=== PATIENT | female | born 2000 | race Caucasian/White ===

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

== ENCOUNTER 2019-08-13 06:54 | Inpatient (IN) | payer BC ==
[~2019-08-13 06:54] MED LIST: Bupivacaine 0.25% 10 ML SDV ONE
[2019-08-13] MEDS ORDERED: Misoprostol 25 MCG (1/4 of 100 MCG) Tab ONE (07:38)
[2019-08-13] MEDS ORDERED: Sodium Chloride 0.9% 10 ML Syringe FLUSH PRN (07:42)
[2019-08-13] MEDS ORDERED: Ondansetron 4 MG/2 ML SDV IVPUSH PRN (07:42)
[2019-08-13] MEDS ORDERED: Misoprostol 25 MCG (1/4 of 100 MCG) Tab VAG ONE ×2 (07:45→11:00)
--- NOTE | 2019-08-13 07:56 | PCM.LDHP ---
L&D History of Present Illness - General Date of Service: 08/13/19 Admit Problem/Dx: Patient Status Order with Admit Dx/Problem 08/13/19 07:42 Patient Status [ADT] Routine Admission Diagnosis/Problem Admission Diagnosis/Problem History Limitations: Reports: No Limitations - History of Present Illness Introduction:: -year-old 1 AMANDA 08/17/19 estimated gestational age 89 weeks and 3 days presented to labor and delivery for induction of labor. Patient had problems during the with threatened labor controlled with Procardia 10 mg by mouth every 4 hours patient is now presenting for induction of labor. GBS positive. Collected 06/11/2019 LMP AMANDA 08/17/2019 initial ultrasound on 02/25/2019 15 weeks and 3 days AMANDA 201901/28/2019 blood type A positive antibody screen negative hemoglobin/hematocrit 12.3/36.7 platelets 217,000 rubella immune serology nonreactive urine culture mixed cristian hepatitis B surface antigen negative GC and chlamydia probe negative 06/03/19 hemoglobin/hematocrit 9.4/30.4 platelets 179,000, 1 hour OB glucose screen 109 serology nonreactive 06/04/19 group B strep negative but 06/11/19 group B strep positive 50 g of Cytotec placed at 0747 hrs. Cervix is 1-2 cm dilated on soft posterior cephalic presentation -2 Improves with: Reports: None Worsens with: Reports: None Associated Symptoms: Reports: N - Related Data Allergies/Adverse Reactions: Allergies Allergy/AdvReac Type Severity Reaction Status Date / Time No Known Allergies Allergy Verified 08/07/19 03:04 Home Medications: Home Meds [id number]/Iron Fumarate/FA/DSS [ 19 Tablet] 1 each PO DAILY 07/09/19 [ History] Past Medical History - Past Health History Medical/Surgical History: Denies Medical/Surgical History HEENT History: Reports: Impaired Vision Gastrointestinal History: Reports: Hemorrhoids Genitourinary History: Reports: UTI, Recurrent 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: Psychiatric History: 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) Hematologic History: Reports: Iron Deficiency - Past Surgical History HEENT Surgical History: Reports: Oral Surgery (wisdom teeth extraction) Musculoskeletal Surgical History: Reports: Other (See Below) (Bilateral gastrocnemius tendon shortening) Social & Family History - Family History Family Medical History: Noncontributory - Caffeine Use Caffeine Use: Reports: Soda - Living Situation & Occupation Living situation: Reports: Single, with Significant Other (Boyfriend), with Family (Baby) Occupation: Employed ([employer]) H&P Review of Systems - Review of Systems: Review Of Systems: See Below General: Reports: No Symptoms HEENT: Reports: No Symptoms Pulmonary: Reports: No Symptoms Cardiovascular: Reports: No Symptoms Gastrointestinal: Reports: No Symptoms Genitourinary: Reports: No Symptoms Musculoskeletal: Reports: No Symptoms Skin: Reports: No Symptoms Psychiatric: Reports: No Symptoms Neurological: Reports: No Symptoms Hematologic/Lymphatic: Reports: No Symptoms Immunologic: Reports: No Symptoms L&D Exam - Exam Exam: See Below - Vital Signs Weight: 357 lb 2.382 oz - OB Specific Movement: Active Heart Tones: Present Heart Tones per Min: 130 Heart Rate (FHR) Variability: Moderate (6-25 bmp) Presentation: Vertex - Winter Score Winter Score Cervix Position: Posterior Winter Score Consistency: Soft Winter Score Effacement: 0-30% Winter Score Dilation: 1-2 cm Winter Score Infant's Station: -2 Winter Score Total: 4 - Exam General: Alert, Oriented HEENT: Conjunctiva Clear, Mucosa Moist & [place] Neck: Supple, Trachea Midline Lungs: Clear to Auscultation, Normal Respiratory Effort Cardiovascular: Regular Rate, Regular Rhythm GI/Abdominal Exam: Normal Bowel Sounds, Soft, Non-Tender Genitourinary: Normal external exam Extremities: Normal Inspection, Non-Tender, No Pedal Edema, Normal Capillary Refill Skin: Warm, Dry, Intact Psychiatric: Alert, Normal Affect, Normal Mood - Problem List (1) 39 weeks gestation of SNOMED Code(s): 92412384 ICD Code: Z3A.39 - 39 WEEKS GESTATION OF Status: Acute Current Visit: Yes Problem List Initiated/Reviewed/Updated: No Orders Last 24hrs: Active Orders 24 hr Category Date Time Status Patient Status [ADT] Routine ADT 08/13/19 07:42 Active Activity as Tolerated [RC] PFP Care 08/13/19 07:42 Active Communication Order [RC] ASDIRECTED Care 08/13/19 07:42 Active Heart Tones [RC] ASDIRECTED Care 08/13/19 07:43 Active Non Stress Test [RC] PER UNIT ROUTINE Care 08/13/19 07:42 Active Notify Provider [RC] PFP Care 08/13/19 07:42 Active Notify Provider [RC] PRN Care 08/13/19 07:42 Active Peripheral IV Care [RC] . DIRECTED Care 08/13/19 07:43 Active Pump Management, Intrathecal [RC] ASDIRECTED Care 08/13/19 07:43 Active Urinary Catheter Assessment [RC] ASDIRECTED Care 08/13/19 07:42 Active Vital Signs [RC] PER UNIT ROUTINE Care 08/13/19 07:42 Active Regular Diet [DIET] Diet 08/13/19 Breakfast Active CBC WITH AUTO DIFF [HEME] Stat Lab 08/13/19 07:42 Ordered RAPID PLASMA REAGIN,RPR [CHEM] Routine Lab 08/13/19 07:42 Ordered TYPE AND SCREEN [BBK] Stat Lab 08/13/19 07:42 Ordered Ampicillin 1 gm Med 08/13/19 12:00 Active Sodium Chloride 0.9% [Normal Saline] 100 ml IV Q4H Ampicillin 2 gm Med 08/13/19 08:00 Active Sodium Chloride 0.9% [Normal Saline] 100 ml IV ONETIME Lactated Ringers [Ringers, Lactated] 1,000 ml Med 08/13/19 07:45 Active IV ASDIRECTED Ondansetron [Zofran] Med 08/13/19 07:42 Active 4 mg IVPUSH Q4H PRN Oxytocin/Lactated Ringers [Pitocin in LR 10 Units/1,000 Med 08/13/19 12:00 Ordered ML] 10 unit in 1,000 ml IV TITRATE Sodium Chloride 0.9% [Saline Flush] Med 08/13/19 07:42 Ordered 10 ml FLUSH ASDIRECTED PRN Electronic Heart Tones Ext w TOCO [WOMSER] Oth 08/13/19 07:42 Ordered Routine Electronic Heart Tones Internal [WOMSER] Per Unit Oth 08/13/19 07:42 Ordered Routine Peripheral IV Insertion Adult [OM.PC] Routine Oth 08/13/19 07:42 Ordered Resuscitation Status Routine Resus Stat 08/13/19 07:42 Ordered Medication Orders Ampicillin Sodium 2 gm/ Sodium (Chloride) 100 mls @ 200 mls/hr IV ONETIME ONE Stop: 08/13/19 08:29 Ampicillin Sodium 1 gm/ Sodium (Chloride) 100 mls @ 200 mls/hr IV Q4H FERNANDO Lactated Ringer's (Ringers, Lactated) 1,000 mls @ 100 mls/hr IV ASDIRECTED FERNANDO Ondansetron HCl (Zofran) 4 mg IVPUSH Q4H PRN PRN Reason: Nausea/Vomiting Sodium Chloride (Saline Flush) 10 ml FLUSH ASDIRECTED PRN PRN Reason: Keep Vein Open Assessment/Plan Comment:: Plan delivery Salon for GBS prophylaxis
[2019-08-13] MEDS ORDERED: Ampicillin 2 GM in Sodium Chloride 0.9% 100 ML IV ONE (08:00)
[2019-08-13] MEDS: Lactated Ringers 1,000 ML IV SCH ×2 (08:15→14:22)
[2019-08-13] MEDS ORDERED: Oxytocin/Lactated Ringers 10 UNIT/1,000 ML BAG IV SCH (12:00)
[2019-08-13] MEDS: Ampicillin 1 GM in Sodium Chloride 0.9% 100 ML IV SCH ×3 (12:04→21:14)
--- NOTE | 2019-08-13 12:11 | PCM.SN ---
- Free Text/Narrative Note: Cyst 2 cm dilated, 50% effaced, soft, posterior, vertex -1 presentation. Category 1 heart rate before and after amniotomy. Amniotomy performed at 1208 hrs. clear fluid.
--- NOTE | 2019-08-13 12:28 | PCM.PREANE ---
Preanesthetic Assessment - Procedure Proposed Procedure: sandy - Anesthesia/Transfusion/Family Hx Anesthesia History: Prior Anesthesia Without Reaction Family History of Anesthesia Reaction: No Transfusion History: No Prior Transfusion(s) - Review of Systems General: No Symptoms Pulmonary: No Symptoms Cardiovascular: No Symptoms Gastrointestinal: No Symptoms Neurological: No Symptoms Other: Reports: None - Physical Assessment Vital Signs: Last Vital Signs Temp 98.2 F 08/13/19 07:42 Pulse 101 H 08/13/19 07:42 Resp 16 08/13/19 07:42 BP 116/57 L 08/13/19 07:42 Pulse Ox 100 08/13/19 07:42 Height: 5 ft 5 in Weight: 78.925 kg ASA Class: 2 Mental Status: Alert & Oriented x3 Airway Class: Mallampati = 1 Dentition: Reports: Normal Dentition Thyro-Mental Finger Breadths: 3 Mouth Opening Finger Breadths: 3 ROM/Head Extension: Full Lungs: Clear to Auscultation, Normal Respiratory Effort Cardiovascular: Regular Rate, Regular Rhythm - Lab Values: Laboratory Last Values WBC 6.20 K/mm3 (3.98-10.04) 08/13/19 07:56 RBC 4.04 M/mm3 (3.98-5.22) 08/13/19 07:56 Hgb 10.2 gm/dl (11.2-15.7) L 08/13/19 07:56 Hct 32.6 % (34.1-44.9) L 08/13/19 07:56 MCV 80.7 fl (79.4-94.8) D 08/13/19 07:56 MCH 25.2 pg (25.6-32.2) L 08/13/19 07:56 MCHC 31.3 g/dl (32.2-35.5) L 08/13/19 07:56 RDW Std Deviation 54.2 fL (36.4-46.3) H 08/13/19 07:56 Plt Count 160 K/mm3 (182-369) L 08/13/19 07:56 MPV 10.1 fl (9.4-12.3) 08/13/19 07:56 Neut % (Auto) 57.0 % (34.0-71.1) 08/13/19 07:56 Lymph % (Auto) 28.9 % (19.3-51.7) 08/13/19 07:56 [place] % (Auto) 11.8 % (4.7-12.5) 08/13/19 07:56 Eos % (Auto) 1.1 (0.7-5.8) 08/13/19 07:56 Baso % (Auto) 0.2 % (0.1-1.2) 08/13/19 07:56 Neut # (Auto) 3.54 K/mm3 (1.56-6.13) 08/13/19 07:56 Lymph # (Auto) 1.79 K/mm3 (1.18-3.74) 08/13/19 07:56 [place] # (Auto) 0.73 K/mm3 (0.24-0.36) H 08/13/19 07:56 Eos # (Auto) 0.07 K/mm3 (0.04-0.36) 08/13/19 07:56 Baso # (Auto) 0.01 K/mm3 (0.01-0.08) 08/13/19 07:56 Blood Type A POSITIVE 08/13/19 07:56 Gel Antibody Screen Negative 08/13/19 07:56 - Allergies Allergies/Adverse Reactions: Allergies Allergy/AdvReac Type Severity Reaction Status Date / Time No Known Allergies Allergy Verified 08/07/19 03:04 - Blood Blood Available: No - Acknowledgements Anesthesia Type Planned: Epidural Pt an Appropriate Candidate for the Planned Anesthesia: Yes Alternatives and Risks of Anesthesia Discussed w Pt/Guardian: Yes Pt/Guardian Understands and Agrees with Anesthesia Plan: Yes PreAnesthesia Questionnaire - Past Health History Medical/Surgical History: Denies Medical/Surgical History HEENT History: Reports: Impaired Vision Cardiovascular History: Reports: None Respiratory History: Reports: None Gastrointestinal History: Reports: GERD (with preg), Hemorrhoids Genitourinary History: Reports: UTI, Recurrent 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 Psychiatric History: 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) Hematologic History: Reports: Iron Deficiency - Past Surgical History HEENT Surgical History: Reports: Oral Surgery (wisdom teeth extraction) Musculoskeletal Surgical History: Reports: Other (See Below) (Bilateral gastrocnemius tendon shortening) - SUBSTANCE USE Smoking Status *Q: Never Smoker Tobacco Use Within Last Twelve Months: No Second Hand Smoke Exposure: No Days Per Week of Alcohol Use: 0 Recreational Drug Use History: No - HOME MEDS Home Medications: Home Meds [id number]/Iron Fumarate/FA/DSS [ 19 Tablet] 1 each PO DAILY 07/09/19 [ History] Ferrous Sulfate [Iron] 325 mg PO DAILY 08/13/19 [History] - CURRENT (IN HOUSE) MEDS Current Meds: Current Medications Ampicillin Sodium 1 gm/ Sodium (Chloride) 100 mls @ 200 mls/hr IV Q4H FERNANDO Last Admin: 08/13/19 12:04 Dose: 200 mls/hr Lactated Ringer's (Ringers, Lactated) 1,000 mls @ 100 mls/hr IV ASDIRECTED FERNANDO Last Admin: 08/13/19 08:15 Dose: 100 mls/hr Oxytocin/Lactated Ringer's (Pitocin In Lr 10 Units/1,000 Ml) 10 unit in 1,000 mls @ 12 mls/hr IV TITRATE FERNANDO; Protocol Ondansetron HCl (Zofran) 4 mg IVPUSH Q4H PRN PRN Reason: Nausea/Vomiting Sodium Chloride (Saline Flush) 10 ml FLUSH ASDIRECTED PRN PRN Reason: Keep Vein Open Discontinued Medications Ampicillin Sodium 2 gm/ Sodium (Chloride) 100 mls @ 200 mls/hr IV ONETIME ONE Stop: 08/13/19 08:29 Last Admin: 08/13/19 08:15 Dose: 200 mls/hr Misoprostol (Cytotec) Confirm Administered Dose 25 mcg .ROUTE .STK-MED ONE Stop: 08/13/19 07:39 Last Admin: 08/13/19 11:08 Dose: Not Given Misoprostol (Cytotec) 50 mcg VAG ONETIME ONE Stop: 08/13/19 07:46 Last Admin: 08/13/19 07:47 Dose: 50 mcg Misoprostol (Cytotec) 50 mcg VAG ONETIME ONE Stop: 08/13/19 11:01 Last Admin: 08/13/19 11:05 Dose: 50 mcg
[2019-08-13] MEDS ORDERED: fentaNYL 100 MCG/2 ML SDV EPIDUR PRN (13:28)
[2019-08-13] MEDS ORDERED: ePHEDrine 50 MG/ML SDV IVPUSH PRN (13:28)
[2019-08-13] MEDS ORDERED: diphenhydrAMINE 50 MG/ML SDV IVPUSH PRN (13:28)
[2019-08-13] MEDS ORDERED: Bupivacaine/fentaNYL/NS 100 ML Bag EPIDUR PRN (13:28)
--- NOTE | 2019-08-13 16:08 | PCM.SN ---
- Free Text/Narrative Note: Cervix 5 cm, 100 % effaced, soft, mid-position, vertex 0 station. Contractions need to be more regular and closer together, will start pitocin. Cat I FHR pattern.
--- NOTE | 2019-08-13 19:31 | PCM.SN ---
- Free Text/Narrative Note: Cervix exam at 1925 complete, to begin pushing.
--- NOTE | 2019-08-13 19:59 | PCM.DEL ---
L & D Note - General Info Date of Service: 08/13/19 Mother's Due Date: 08/17/19 - Delivery Note Labor: Augmented by ARM, Induced by Oxytocin Delivery Outcome: Livebirth (male 08/13/2019 1938 hrs weight 3960 g/8# 12 oz APGARs 8/9, JT, nuchal cord x1, true knot in cord) Delivery Method: Spontaneous Vaginal Delivery-Single Infant Delivery Mode: Spontaneous Presentation: Left Occiput Anterior (JT) Nuchal Cord: Present (x1 and true knot in the cord) Prep: Povidone-Iodine (Betadine Anesthesia Type: Epidural Episiotomy Type: None Laceration: None Placenta: Intact, Spontaneous (194108/13/2019 Intrauterine exam removed two small remnants of membranes) Cord: 3 Vessels, True Knot Resuscitation Needed: No : Suctioned, Bulb Syringe, Stimulated, Warmed, [place] Used, Warmer Used Provider: Orion Chambers Score 1 min: 8 Score 5 min: 9 Induction Criteria - Winter Score Winter Score Dilation: 1-2 cm Winter Score Effacement: 0-30% Winter Score Infant's Station: -2 Winter Score Consistency: Soft Winter Score Cervix Position: Posterior Winter Score Total: 4 Winter Score Presenting Part: Reports: Cephalic - Induction Gestational Age >/= 39 wks: Yes Estimated Pelvis: Reports: Adequate Reassuring Monitoring Strip: Yes Absence of Tachy Systole: Yes - Augmentation Estimated Pelvis: Reports: Adequate Weight Estimated:: Reports: AGA Reassuring Monitoring Strip: Yes Absence of Tachy Systole: Yes - General Info Date of Service: 08/13/19 Functional Status: Reports: Pain Controlled - Review of Systems General: Reports: No Symptoms HEENT: Reports: No Symptoms Pulmonary: Reports: No Symptoms Cardiovascular: Reports: No Symptoms Gastrointestinal: Reports: No Symptoms Genitourinary: Reports: No Symptoms Musculoskeletal: Reports: No Symptoms Skin: Reports: No Symptoms Neurological: Reports: No Symptoms Psychiatric: Reports: No Symptoms - Patient Data Vitals - Most Recent: Last Vital Signs Temp 98.2 F 08/13/19 07:42 Pulse 101 H 08/13/19 07:42 Resp 16 08/13/19 07:42 BP 116/57 L 08/13/19 07:42 Pulse Ox 100 08/13/19 07:42 Weight - Most Recent: 174 lb Lab Results Last 24 Hours: Laboratory Results - last 24 hr 08/13/19 08/13/19 Range/Units 07:56 07:56 WBC 6.20 (3.98-10.04) K/mm3 RBC 4.04 (3.98-5.22) M/mm3 Hgb 10.2 L (11.2-15.7) gm/dl Hct 32.6 L (34.1-44.9) % MCV 80.7 D (79.4-94.8) fl MCH 25.2 L (25.6-32.2) pg MCHC 31.3 L (32.2-35.5) g/dl RDW Std Deviation 54.2 H (36.4-46.3) fL Plt Count 160 L (182-369) K/mm3 MPV 10.1 (9.4-12.3) fl Neut % (Auto) 57.0 (34.0-71.1) % Lymph % (Auto) 28.9 (19.3-51.7) % [place] % (Auto) 11.8 (4.7-12.5) % Eos % (Auto) 1.1 (0.7-5.8) Baso % (Auto) 0.2 (0.1-1.2) % Neut # (Auto) 3.54 (1.56-6.13) K/mm3 Lymph # (Auto) 1.79 (1.18-3.74) K/mm3 [place] # (Auto) 0.73 H (0.24-0.36) K/mm3 Eos # (Auto) 0.07 (0.04-0.36) K/mm3 Baso # (Auto) 0.01 (0.01-0.08) K/mm3 Blood Type A POSITIVE Gel Antibody Screen Negative Med Orders - Current: Current Medications Diphenhydramine HCl (Benadryl) 25 mg IVPUSH Q6H PRN PRN Reason: pruritis Ephedrine Sulfate (Ephedrine Sulfate) 5 mg IVPUSH ASDIRECTED PRN PRN Reason: Hypotension Fentanyl (Sublimaze) 100 mcg EPIDUR Q3H PRN PRN Reason: Pain Last Admin: 08/13/19 14:04 Dose: 100 mcg Fentanyl/Bupivacaine HCl (Fentanyl/Bupivacaine/Ns 2 Mcg-0.125% 100 Ml) 100 ml EPIDUR ASDIRECTED PRN PRN Reason: Pain Last Admin: 08/13/19 14:05 Dose: 100 ml Ampicillin Sodium 1 gm/ Sodium (Chloride) 100 mls @ 200 mls/hr IV Q4H FERNANDO Last Admin: 08/13/19 16:19 Dose: 200 mls/hr Lactated Ringer's (Ringers, Lactated) 1,000 mls @ 100 mls/hr IV ASDIRECTED FERNANDO Last Admin: 08/13/19 14:22 Dose: 100 mls/hr Oxytocin/Lactated Ringer's (Pitocin In Lr 10 Units/1,000 Ml) 10 unit in 1,000 mls @ 12 mls/hr IV TITRATE FERNANDO; Protocol Last Titration: 08/13/19 18:26 Dose: 3 munits/min, 18 mls/hr Ondansetron HCl (Zofran) 4 mg IVPUSH Q4H PRN PRN Reason: Nausea/Vomiting Sodium Chloride (Saline Flush) 10 ml FLUSH ASDIRECTED PRN PRN Reason: Keep Vein Open Discontinued Medications Ampicillin Sodium 2 gm/ Sodium (Chloride) 100 mls @ 200 mls/hr IV ONETIME ONE Stop: 08/13/19 08:29 Last Admin: 08/13/19 08:15 Dose: 200 mls/hr Misoprostol (Cytotec) Confirm Administered Dose 25 mcg .ROUTE .STK-MED ONE Stop: 08/13/19 07:39 Last Admin: 08/13/19 11:08 Dose: Not Given Misoprostol (Cytotec) 50 mcg VAG ONETIME ONE Stop: 08/13/19 07:46 Last Admin: 08/13/19 07:47 Dose: 50 mcg Misoprostol (Cytotec) 50 mcg VAG ONETIME ONE Stop: 08/13/19 11:01 Last Admin: 08/13/19 11:05 Dose: 50 mcg - Exam General: Alert, Oriented HEENT: Pupils Equal, Mucous Membr. Moist/[place] Neck: Supple Lungs: Clear to Auscultation, Normal Respiratory Effort Cardiovascular: Regular Rate, Regular Rhythm GI/Abdominal Exam: Normal Bowel Sounds, Soft, Non-Tender (Female) Exam: Normal External Exam Extremities: Normal Inspection, Non-Tender, No Pedal Edema, Normal Capillary Refill Skin: Warm, Dry, Intact Psy/Mental Status: Alert, Normal Affect, Normal Mood - Problem List & Annotations (1) 39 weeks gestation of SNOMED Code(s): 58126704 Code(s): Z3A.39 - 39 WEEKS GESTATION OF Status: Acute Current Visit: Yes (2) Nuchal cord without compression, delivered, current hospitalization SNOMED Code(s): 02164765, 001103995 Code(s): O69.81X0 - LABOR AND DEL COMP BY CORD AROUND NECK, W/O COMPRSN, UNSP Status: Acute Current Visit: Yes (3) True knot in cord SNOMED Code(s): 88817154 Code(s): O69.2XX0 - LABOR AND DEL COMP BY OTH CORD ENTANGLE, W COMPRSN, UNSP Status: Acute Current Visit: Yes Qualifiers: Fetus number: single or unspecified fetus Qualified Code(s): O69.2XX0 - Labor and delivery complicated by other cord entanglement, with compression, not applicable or unspecified (4) Born by normal vaginal delivery SNOMED Code(s): 199235277 Code(s): O80 - ENCOUNTER FOR FULL-TERM UNCOMPLICATED DELIVERY Status: Acute Current Visit: Yes (5) Umbilical cord, marginal insertion SNOMED Code(s): 07088236 Code(s): UPS3605 - Status: Acute Current Visit: Yes - Problem List Review Problem List Initiated/Reviewed/Updated: No - My Orders Last 24 Hours: My Active Orders 08/13/19 07:42 Patient Status [ADT] Routine Activity as Tolerated [RC] PFP Communication Order [RC] ASDIRECTED Non Stress Test [RC] PER UNIT ROUTINE Notify Provider [RC] PFP Notify Provider [RC] PRN Urinary Catheter Assessment [RC] ASDIRECTED Vital Signs [RC] PER UNIT ROUTINE Ondansetron [Zofran] 4 mg IVPUSH Q4H PRN Sodium Chloride 0.9% [Saline Flush] 10 ml FLUSH ASDIRECTED PRN Electronic Heart Tones Ext w TOCO [WOMSER] Routine Electronic Heart Tones Internal [WOMSER] Per Unit Routine Peripheral IV Insertion Adult [OM.PC] Routine Resuscitation Status Routine 08/13/19 07:43 Heart Tones [RC] ASDIRECTED Peripheral IV Care [RC] . DIRECTED Pump Management, Intrathecal [RC] ASDIRECTED 08/13/19 07:45 Lactated Ringers [Ringers, Lactated] 1,000 ml IV ASDIRECTED 08/13/19 07:56 RAPID PLASMA REAGIN,RPR [CHEM] Routine 08/13/19 12:00 Ampicillin 1 gm Sodium Chloride 0.9% [Normal Saline] 100 ml IV Q4H Oxytocin/Lactated Ringers [Pitocin in LR 10 Units/1,000 ML] 10 unit in 1,000 ml IV TITRATE 08/13/19 Breakfast Regular Diet [DIET] - Plan Plan:: Plan delivery Salon for GBS prophylaxis
[2019-08-13] MEDS ORDERED: Misoprostol 200 MCG Tab ONE (20:17)
[2019-08-13] MEDS ORDERED: Carboprost Tromethamine 250 MCG/1 ML Amp ONE (20:18)
[2019-08-13] MEDS ORDERED: Carboprost Tromethamine 250 MCG/1 ML Amp IM ONE (20:29)
[2019-08-13] MEDS ORDERED: Misoprostol 200 MCG Tab PO ONE (20:29)
[2019-08-13] MEDS ORDERED: Witch Hazel Medicated Pads 40/Jar TOP PRN (21:16)
[2019-08-13] MEDS ORDERED: Docusate Sodium 100 MG Cap PO PRN (21:16)
[2019-08-13] MEDS ORDERED: Benzocaine/Menthol 20%-0.5% Spray 56 GM Canister TOP PRN (21:16)
[2019-08-13] MEDS ORDERED: Acetaminophen 325 MG Tab PO PRN (21:16)
[2019-08-14] MEDS ORDERED: Misoprostol 200 MCG Tab PO ONE (03:00)
[2019-08-14] MEDS: Ibuprofen 600 MG Tab PO PRN ×3 (03:32→21:40)
--- NOTE | 2019-08-14 09:21 | PCM48HPAN ---
Post Anesthesia Note - EVALUATION WITHIN 48HRS OF ANESTHETIC Vital Signs in Normal Range: Yes Patient Participated in Evaluation: Yes Respiratory Function Stable: Yes Airway Patent: Yes Cardiovascular Function Stable: Yes Hydration Status Stable: Yes Pain Control Satisfactory: Yes Nausea and Vomiting Control Satisfactory: Yes Mental Status Recovered: Yes Vital Signs: Last Vital Signs Temp 36.8 C 08/13/19 07:42 Pulse 122 H 08/13/19 21:00 Resp 16 08/13/19 07:42 BP 137/81 08/13/19 21:00 Pulse Ox 100 08/13/19 07:42
--- NOTE | 2019-08-14 09:54 | PCM.DCSUM1 ---
Discharge Summary - Hospital Course Free Text/Narrative:: [facility] LIVE L/D Delivery Note Patient Name: ELENO ABREU Date of : 89 Patient Status: Inpatient Attending Provider: Orion Chambers Date: 08/13/19 19:53 Initialization Date: 08/13/19 19:53 L & D Note - General Info Date of Service: 08/13/19 Mother's Due Date: 08/17/19 - Delivery Note Labor: Augmented by ARM, Induced by Oxytocin Delivery Outcome: Livebirth (male 08/13/2019 1938 hrs weight 3960 g/8# 12 oz APGARs 8/9, JT, nuchal cord x1, true knot in cord) Delivery Method: Spontaneous Vaginal Delivery-Single Delivery Mode: Spontaneous Presentation: Left Occiput Anterior (JT) Nuchal Cord: Present (x1 and true knot in the cord) Prep: Povidone-Iodine (Betadine Anesthesia Type: Epidural Episiotomy Type: None Laceration: None Placenta: Intact, Spontaneous (194108/13/2019 Intrauterine exam removed two small remnants of membranes) Cord: 3 Vessels, True Knot Resuscitation Needed: No : Suctioned, Bulb Syringe, Stimulated, Warmed, [place] Used, Warmer Used Provider: Orion Chambers Score 1 min: 8 Score 5 min: 9 Induction Criteria - Winter Score Winter Score Dilation: 1-2 cm Winter Score Effacement: 0-30% Winter Score Infant's Station: -2 Winter Score Consistency: Soft Winter Score Cervix Position: Posterior Winter Score Total: 4 Winter Score Presenting Part: Reports: Cephalic - Induction Gestational Age >/= 39 wks: Yes Estimated Pelvis: Reports: Adequate Reassuring Monitoring Strip: Yes Absence of Tachy Systole: Yes - Augmentation Estimated Pelvis: Reports: Adequate Weight Estimated:: Reports: AGA Reassuring Monitoring Strip: Yes Absence of Tachy Systole: Yes - General Info Date of Service: 08/13/19 Functional Status: Reports: Pain Controlled - Review of Systems General: Reports: No Symptoms HEENT: Reports: No Symptoms Pulmonary: Reports: No Symptoms Cardiovascular: Reports: No Symptoms Gastrointestinal: Reports: No Symptoms Genitourinary: Reports: No Symptoms Musculoskeletal: Reports: No Symptoms Skin: Reports: No Symptoms Neurological: Reports: No Symptoms Psychiatric: Reports: No Symptoms - Patient Data Vitals - Most Recent: Last Vital Signs Temp 98.2 F 08/13/19 07:42 Pulse 101 H 08/13/19 07:42 Resp 16 08/13/19 07:42 BP 116/57 L 08/13/19 07:42 Pulse Ox 100 08/13/19 07:42 Weight - Most Recent: 174 lb Lab Results Last 24 Hours: Laboratory Results - last 24 hr 08/13/19 08/13/19 Range/Units 07:56 07:56 WBC 6.20 (3.98-10.04) K/mm3 RBC 4.04 (3.98-5.22) M/mm3 Hgb 10.2 L (11.2-15.7) gm/dl Hct 32.6 L (34.1-44.9) % MCV 80.7 D (79.4-94.8) fl MCH 25.2 L (25.6-32.2) pg MCHC 31.3 L (32.2-35.5) g/dl RDW Std Deviation 54.2 H (36.4-46.3) fL Plt Count 160 L (182-369) K/mm3 MPV 10.1 (9.4-12.3) fl Neut % (Auto) 57.0 (34.0-71.1) % Lymph % (Auto) 28.9 (19.3-51.7) % Whitman % (Auto) 11.8 (4.7-12.5) % Eos % (Auto) 1.1 (0.7-5.8) Baso % (Auto) 0.2 (0.1-1.2) % Neut # (Auto) 3.54 (1.56-6.13) K/mm3 Lymph # (Auto) 1.79 (1.18-3.74) K/mm3 Whitman # (Auto) 0.73 H (0.24-0.36) K/mm3 Eos # (Auto) 0.07 (0.04-0.36) K/mm3 Baso # (Auto) 0.01 (0.01-0.08) K/mm3 Blood Type A POSITIVE Gel Antibody Screen Negative Med Orders - Current: Current Medications Diphenhydramine HCl (Benadryl) 25 mg IVPUSH Q6H PRN PRN Reason: pruritis Ephedrine Sulfate (Ephedrine Sulfate) 5 mg IVPUSH ASDIRECTED PRN PRN Reason: Hypotension Fentanyl (Sublimaze) 100 mcg EPIDUR Q3H PRN PRN Reason: Pain Last Admin: 08/13/19 14:04 Dose: 100 mcg Fentanyl/Bupivacaine HCl (Fentanyl/Bupivacaine/Ns 2 Mcg-0.125% 100 Ml) 100 ml EPIDUR ASDIRECTED PRN PRN Reason: Pain Last Admin: 08/13/19 14:05 Dose: 100 ml Ampicillin Sodium 1 gm/ Sodium (Chloride) 100 mls @ 200 mls/hr IV Q4H FERNANDO Last Admin: 08/13/19 16:19 Dose: 200 mls/hr Lactated Ringer's (Ringers, Lactated) 1,000 mls @ 100 mls/hr IV ASDIRECTED FERNANDO Last Admin: 08/13/19 14:22 Dose: 100 mls/hr Oxytocin/Lactated Ringer's (Pitocin In Lr 10 Units/1,000 Ml) 10 unit in 1,000 mls @ 12 mls/hr IV TITRATE FERNANDO; Protocol Last Titration: 08/13/19 18:26 Dose: 3 munits/min, 18 mls/hr Ondansetron HCl (Zofran) 4 mg IVPUSH Q4H PRN PRN Reason: Nausea/Vomiting Sodium Chloride (Saline Flush) 10 ml FLUSH ASDIRECTED PRN PRN Reason: Keep Vein Open Discontinued Medications Ampicillin Sodium 2 gm/ Sodium (Chloride) 100 mls @ 200 mls/hr IV ONETIME ONE Stop: 08/13/19 08:29 Last Admin: 08/13/19 08:15 Dose: 200 mls/hr Misoprostol (Cytotec) Confirm Administered Dose 25 mcg .ROUTE .STK-MED ONE Stop: 08/13/19 07:39 Last Admin: 08/13/19 11:08 Dose: Not Given Misoprostol (Cytotec) 50 mcg VAG ONETIME ONE Stop: 08/13/19 07:46 Last Admin: 08/13/19 07:47 Dose: 50 mcg Misoprostol (Cytotec) 50 mcg VAG ONETIME ONE Stop: 08/13/19 11:01 Last Admin: 08/13/19 11:05 Dose: 50 mcg - Exam General: Alert, Oriented HEENT: Pupils Equal, Mucous Membr. Moist/[place] Neck: Supple Lungs: Clear to Auscultation, Normal Respiratory Effort Cardiovascular: Regular Rate, Regular Rhythm GI/Abdominal Exam: Normal Bowel Sounds, Soft, Non-Tender (Female) Exam: Normal External Exam Extremities: Normal Inspection, Non-Tender, No Pedal Edema, Normal Capillary Refill Skin: Warm, Dry, Intact Psy/Mental Status: Alert, Normal Affect, Normal Mood - Problem List & Annotations (1) 39 weeks gestation of SNOMED Code(s): 99006961 Code(s): Z3A.39 - 39 WEEKS GESTATION OF Status: Acute Current Visit: Yes (2) Nuchal cord without compression, delivered, current hospitalization SNOMED Code(s): 00999592, 970710358 Code(s): O69.81X0 - LABOR AND DEL COMP BY CORD AROUND NECK, W/O COMPRSN, UNSP Status: Acute Current Visit: Yes (3) True knot in cord SNOMED Code(s): 43105783 Code(s): O69.2XX0 - LABOR AND DEL COMP BY OTH CORD ENTANGLE, W COMPRSN, UNSP Status: Acute Current Visit: Yes Qualifiers: Fetus number: single or unspecified fetus Qualified Code(s): O69.2XX0 - Labor and delivery complicated by other cord entanglement, with compression, not applicable or unspecified (4) Born by normal vaginal delivery SNOMED Code(s): 450333011 Code(s): O80 - ENCOUNTER FOR FULL-TERM UNCOMPLICATED DELIVERY Status: Acute Current Visit: Yes (5) Umbilical cord, marginal insertion SNOMED Code(s): 25690389 Code(s): KUR9853 - Status: Acute Current Visit: Yes - Problem List Review Problem List Initiated/Reviewed/Updated: No - My Orders Last 24 Hours: My Active Orders 08/13/19 07:42 Patient Status [ADT] Routine Activity as Tolerated [RC] PFP Communication Order [RC] ASDIRECTED Non Stress Test [RC] PER UNIT ROUTINE Notify Provider [RC] PFP Notify Provider [RC] PRN Urinary Catheter Assessment [RC] ASDIRECTED Vital Signs [RC] PER UNIT ROUTINE Ondansetron [Zofran] 4 mg IVPUSH Q4H PRN Sodium Chloride 0.9% [Saline Flush] 10 ml FLUSH ASDIRECTED PRN Electronic Heart Tones Ext w TOCO [WOMSER] Routine Electronic Heart Tones Internal [WOMSER] Per Unit Routine Peripheral IV Insertion Adult [OM.PC] Routine Resuscitation Status Routine 08/13/19 07:43 Heart Tones [RC] ASDIRECTED Peripheral IV Care [RC] . DIRECTED Pump Management, Intrathecal [RC] ASDIRECTED 08/13/19 07:45 Lactated Ringers [Ringers, Lactated] 1,000 ml IV ASDIRECTED 08/13/19 07:56 RAPID PLASMA REAGIN,RPR [CHEM] Routine 08/13/19 12:00 Ampicillin 1 gm Sodium Chloride 0.9% [Normal Saline] 100 ml IV Q4H Oxytocin/Lactated Ringers [Pitocin in LR 10 Units/1,000 ML] 10 unit in 1,000 ml IV TITRATE 08/13/19 Breakfast Regular Diet [DIET] - Plan Plan:: Plan delivery Salon for GBS prophylaxis HPI Initial Comments: [facility] LIVE L/D Delivery Note Patient Name: ELENO ABREU Date of : 99 Patient Status: Inpatient Attending Provider: Orion Chambers Date: 08/13/19 19:53 Initialization Date: 08/13/19 19:53 L & D Note - General Info Date of Service: 08/13/19 Mother's Due Date: 08/17/19 - Delivery Note Labor: Augmented by ARM, Induced by Oxytocin Delivery Outcome: Livebirth (male 08/13/2019 1938 hrs weight 3960 g/8# 12 oz APGARs 8/9, JT, nuchal cord x1, true knot in cord) Delivery Method: Spontaneous Vaginal Delivery-Single Delivery Mode: Spontaneous Presentation: Left Occiput Anterior (JT) Nuchal Cord: Present (x1 and true knot in the cord) Prep: Povidone-Iodine (Betadine Anesthesia Type: Epidural Episiotomy Type: None Laceration: None Placenta: Intact, Spontaneous (194108/13/2019 Intrauterine exam removed two small remnants of membranes) Cord: 3 Vessels, True Knot Resuscitation Needed: No : Suctioned, Bulb Syringe, Stimulated, Warmed, [place] Used, Warmer Used Provider: Orion Chambers Score 1 min: 8 Score 5 min: 9 Induction Criteria - Winter Score Winter Score Dilation: 1-2 cm Winter Score Effacement: 0-30% Winter Score 's Station: -2 Winter Score Consistency: Soft Winter Score Cervix Position: Posterior Winter Score Total: 4 Winter Score Presenting Part: Reports: Cephalic - Induction Gestational Age >/= 39 wks: Yes Estimated Pelvis: Reports: Adequate Reassuring Monitoring Strip: Yes Absence of Tachy Systole: Yes - Augmentation Estimated Pelvis: Reports: Adequate Weight Estimated:: Reports: AGA Reassuring Monitoring Strip: Yes Absence of Tachy Systole: Yes - General Info Date of Service: 08/13/19 Functional Status: Reports: Pain Controlled - Review of Systems General: Reports: No Symptoms HEENT: Reports: No Symptoms Pulmonary: Reports: No Symptoms Cardiovascular: Reports: No Symptoms Gastrointestinal: Reports: No Symptoms Genitourinary: Reports: No Symptoms Musculoskeletal: Reports: No Symptoms Skin: Reports: No Symptoms Neurological: Reports: No Symptoms Psychiatric: Reports: No Symptoms - Patient Data Vitals - Most Recent: Last Vital Signs Temp 98.2 F 08/13/19 07:42 Pulse 101 H 08/13/19 07:42 Resp 16 08/13/19 07:42 BP 116/57 L 08/13/19 07:42 Pulse Ox 100 08/13/19 07:42 Weight - Most Recent: 174 lb Lab Results Last 24 Hours: Laboratory Results - last 24 hr 08/13/19 08/13/19 Range/Units 07:56 07:56 WBC 6.20 (3.98-10.04) K/mm3 RBC 4.04 (3.98-5.22) M/mm3 Hgb 10.2 L (11.2-15.7) gm/dl Hct 32.6 L (34.1-44.9) % MCV 80.7 D (79.4-94.8) fl MCH 25.2 L (25.6-32.2) pg MCHC 31.3 L (32.2-35.5) g/dl RDW Std Deviation 54.2 H (36.4-46.3) fL Plt Count 160 L (182-369) K/mm3 MPV 10.1 (9.4-12.3) fl Neut % (Auto) 57.0 (34.0-71.1) % Lymph % (Auto) 28.9 (19.3-51.7) % Whitman % (Auto) 11.8 (4.7-12.5) % Eos % (Auto) 1.1 (0.7-5.8) Baso % (Auto) 0.2 (0.1-1.2) % Neut # (Auto) 3.54 (1.56-6.13) K/mm3 Lymph # (Auto) 1.79 (1.18-3.74) K/mm3 Whitman # (Auto) 0.73 H (0.24-0.36) K/mm3 Eos # (Auto) 0.07 (0.04-0.36) K/mm3 Baso # (Auto) 0.01 (0.01-0.08) K/mm3 Blood Type A POSITIVE Gel Antibody Screen Negative Med Orders - Current: Current Medications Diphenhydramine HCl (Benadryl) 25 mg IVPUSH Q6H PRN PRN Reason: pruritis Ephedrine Sulfate (Ephedrine Sulfate) 5 mg IVPUSH ASDIRECTED PRN PRN Reason: Hypotension Fentanyl (Sublimaze) 100 mcg EPIDUR Q3H PRN PRN Reason: Pain Last Admin: 08/13/19 14:04 Dose: 100 mcg Fentanyl/Bupivacaine HCl (Fentanyl/Bupivacaine/Ns 2 Mcg-0.125% 100 Ml) 100 ml EPIDUR ASDIRECTED PRN PRN Reason: Pain Last Admin: 08/13/19 14:05 Dose: 100 ml Ampicillin Sodium 1 gm/ Sodium (Chloride) 100 mls @ 200 mls/hr IV Q4H FERNANDO Last Admin: 08/13/19 16:19 Dose: 200 mls/hr Lactated Ringer's (Ringers, Lactated) 1,000 mls @ 100 mls/hr IV ASDIRECTED FERNANDO Last Admin: 08/13/19 14:22 Dose: 100 mls/hr Oxytocin/Lactated Ringer's (Pitocin In Lr 10 Units/1,000 Ml) 10 unit in 1,000 mls @ 12 mls/hr IV TITRATE FERNANDO; Protocol Last Titration: 08/13/19 18:26 Dose: 3 munits/min, 18 mls/hr Ondansetron HCl (Zofran) 4 mg IVPUSH Q4H PRN PRN Reason: Nausea/Vomiting Sodium Chloride (Saline Flush) 10 ml FLUSH ASDIRECTED PRN PRN Reason: Keep Vein Open Discontinued Medications Ampicillin Sodium 2 gm/ Sodium (Chloride) 100 mls @ 200 mls/hr IV ONETIME ONE Stop: 08/13/19 08:29 Last Admin: 08/13/19 08:15 Dose: 200 mls/hr Misoprostol (Cytotec) Confirm Administered Dose 25 mcg .ROUTE .STK-MED ONE Stop: 08/13/19 07:39 Last Admin: 08/13/19 11:08 Dose: Not Given Misoprostol (Cytotec) 50 mcg VAG ONETIME ONE Stop: 08/13/19 07:46 Last Admin: 08/13/19 07:47 Dose: 50 mcg Misoprostol (Cytotec) 50 mcg VAG ONETIME ONE Stop: 08/13/19 11:01 Last Admin: 08/13/19 11:05 Dose: 50 mcg - Exam General: Alert, Oriented HEENT: Pupils Equal, Mucous Membr. Moist/[place] Neck: Supple Lungs: Clear to Auscultation, Normal Respiratory Effort Cardiovascular: Regular Rate, Regular Rhythm GI/Abdominal Exam: Normal Bowel Sounds, Soft, Non-Tender (Female) Exam: Normal External Exam Extremities: Normal Inspection, Non-Tender, No Pedal Edema, Normal Capillary Refill Skin: Warm, Dry, Intact Psy/Mental Status: Alert, Normal Affect, Normal Mood - Problem List & Annotations (1) 39 weeks gestation of SNOMED Code(s): 09649177 Code(s): Z3A.39 - 39 WEEKS GESTATION OF Status: Acute Current Visit: Yes (2) Nuchal cord without compression, delivered, current hospitalization SNOMED Code(s): 59779943, 717689304 Code(s): O69.81X0 - LABOR AND DEL COMP BY CORD AROUND NECK, W/O COMPRSN, UNSP Status: Acute Current Visit: Yes (3) True knot in cord SNOMED Code(s): 94646915 Code(s): O69.2XX0 - LABOR AND DEL COMP BY OTH CORD ENTANGLE, W COMPRSN, UNSP Status: Acute Current Visit: Yes Qualifiers: Fetus number: single or unspecified fetus Qualified Code(s): O69.2XX0 - Labor and delivery complicated by other cord entanglement, with compression, not applicable or unspecified (4) Born by normal vaginal delivery SNOMED Code(s): 550200335 Code(s): O80 - ENCOUNTER FOR FULL-TERM UNCOMPLICATED DELIVERY Status: Acute Current Visit: Yes (5) Umbilical cord, marginal insertion SNOMED Code(s): 16916859 Code(s): ZON6346 - Status: Acute Current Visit: Yes - Problem List Review Problem List Initiated/Reviewed/Updated: No - My Orders Last 24 Hours: My Active Orders 08/13/19 07:42 Patient Status [ADT] Routine Activity as Tolerated [RC] PFP Communication Order [RC] ASDIRECTED Non Stress Test [RC] PER UNIT ROUTINE Notify Provider [RC] PFP Notify Provider [RC] PRN Urinary Catheter Assessment [RC] ASDIRECTED Vital Signs [RC] PER UNIT ROUTINE Ondansetron [Zofran] 4 mg IVPUSH Q4H PRN Sodium Chloride 0.9% [Saline Flush] 10 ml FLUSH ASDIRECTED PRN Electronic Heart Tones Ext w TOCO [WOMSER] Routine Electronic Heart Tones Internal [WOMSER] Per Unit Routine Peripheral IV Insertion Adult [OM.PC] Routine Resuscitation Status Routine 08/13/19 07:43 Heart Tones [RC] ASDIRECTED Peripheral IV Care [RC] . DIRECTED Pump Management, Intrathecal [RC] ASDIRECTED 08/13/19 07:45 Lactated Ringers [Ringers, Lactated] 1,000 ml IV ASDIRECTED 08/13/19 07:56 RAPID PLASMA REAGIN,RPR [CHEM] Routine 08/13/19 12:00 Ampicillin 1 gm Sodium Chloride 0.9% [Normal Saline] 100 ml IV Q4H Oxytocin/Lactated Ringers [Pitocin in LR 10 Units/1,000 ML] 10 unit in 1,000 ml IV TITRATE 08/13/19 Breakfast Regular Diet [DIET] - Plan Plan:: Plan delivery Salon for GBS prophylaxis Brief History: [facility] LIVE . L/D Delivery Note. Patient Name: ELENO ABREUical Record Number: [id number]. Date of : [birth year]Patient Status: Inpatient. Attending Provider: Orion Chambers Number: [id number]. Date: 08/13/19 19:53Initialization Date: 08/13/19 19:53. L & D Note. - General Info. Date of Service: 08/13/19. Mother's Due Date: 08/17/19. - Delivery Note. Labor: Augmented by ARM, Induced by Oxytocin. Delivery Outcome: Livebirth (male 08/13/2019 1938 hrs weight 3960 g/8# 12 oz APGARs 8/9, JT, nuchal cord x1, true knot in cord). Delivery Method: Spontaneous Vaginal Delivery-Single. Infant Delivery Mode: Spontaneous. Presentation: Left Occiput Anterior (JT). Nuchal Cord: Present (x1 and true knot in the cord). Prep: Povidone-Iodine (Betadine. Anesthesia Type: Epidural. Episiotomy Type: None. Laceration: None. Placenta : Intact, Spontaneous (194108/13/2019 Intrauterine exam removed two small remnants of membranes). Cord: 3 Vessels, True Knot. Resuscitation Needed : No. : Suctioned, Bulb Syringe, Stimulated, Warmed, [place] Used, Warmer Used. Provider: Orion Chambers. Score 1 min: 8. Score 5 min: 9. Induction Criteria. - Winter Score. Winter Score Dilation: 1-2 cm. Winter Score Effacement: 0-30%. Winter Score 's Station: -2. Winter Score Consistency: Soft. Winter Score Cervix Position: Posterior. Winter Score Total: 4. Winter Score Presenting Part: Reports: Cephalic. - Induction. Gestational Age >/= 39 wks: Yes. Estimated Pelvis: Reports: Adequate. Reassuring Monitoring Strip: Yes. Absence of Tachy Systole: Yes. - Augmentation. Estimated Pelvis: Reports: Adequate. Weight Estimated:: Reports: AGA. Reassuring Monitoring Strip: Yes. Absence of Tachy Systole: Yes. - General Info. Date of Service: 08/13/19. Functional Status: Reports: Pain Controlled. - Review of Systems. General: Reports: No Symptoms. HEENT: Reports: No Symptoms. Pulmonary: Reports: No Symptoms. Cardiovascular: Reports: No Symptoms. Gastrointestinal: Reports: No Symptoms. Genitourinary: Reports: No Symptoms. Musculoskeletal: Reports: No Symptoms. Skin: Reports: No Symptoms. Neurological: Reports: No Symptoms. Psychiatric: Reports: No Symptoms. - Patient Data. Vitals - Most Recent: Last Vital Signs. Temp 98.2 F 08/13/19 07:42. Pulse 101 H 08/13/19 07:42. Resp 16 08/13/19 07:42. BP 116/57 L 08/13/19 07:42. Pulse Ox 100 08/13/19 07 :42. Weight - Most Recent: 174 lb. Lab Results Last 24 Hours: Laboratory Results - last 24 hr. 08/13/2001Range/Units. 07:5607:56. WBC 6.20 (3.98 -10.04) K/mm3. RBC 4.04 (3.98-5.22) M/mm3. Hgb 10.2 L (11.2-15.7) gm/dl. Hct 32.6 L (34.1-44.9) %. MCV 80.7 D (79.4-94.8) fl. MCH 25.2 L (25.6-32.2 ) pg. MCHC 31.3 L (32.2-35.5) g/dl. RDW Std Deviation 54.2 H (36.4-46.3) fL. Plt Count 160 L (182-369) K/mm3. MPV 10.1 (9.4-12.3) fl. Neut % (Auto) 57.0 (34.0-71.1) %. Lymph % (Auto) 28.9 (19.3-51.7) %. Whitman % (Auto) 11.8 ( 4.7-12.5) %. Eos % (Auto) 1.1 (0.7-5.8). Baso % (Auto) 0.2 (0.1-1.2) %. Neut # (Auto) 3.54 (1.56-6.13) K/mm3. Lymph # (Auto) 1.79 (1.18-3.74) K/mm3. [place]man # (Auto) 0.73 H (0.24-0.36) K/mm3. Eos # (Auto) 0.07 (0.04-0.36) K/ mm3. Baso # (Auto) 0.01 (0.01-0.08) K/mm3. Blood Type A POSITIVE. Gel Antibody Screen Negative. Med Orders - Current: Current Medications. Diphenhydramine HCl (Benadryl) 25 mg IVPUSH Q6H PRN. PRN Reason: pruritis. Ephedrine Sulfate (Ephedrine Sulfate) 5 mg IVPUSH ASDIRECTED PRN. PRN Reason: Hypotension. Fentanyl (Sublimaze) 100 mcg EPIDUR Q3H PRN. PRN Reason: Pain. Last Admin: 08/13/19 14:04 Dose: 100 mcg. Fentanyl/Bupivacaine HCl (Fentanyl/ Bupivacaine/Ns 2 Mcg-0.125% 100 Ml) 100 ml EPIDUR ASDIRECTED PRN. PRN Reason: Pain. Last Admin: 08/13/19 14:05 Dose: 100 ml. Ampicillin Sodium 1 gm/ Sodium (Chloride) 100 mls @ 200 mls/hr IV Q4H FERNANDO. Last Admin: 08/13/19 16:19 Dose: 200 mls/hr. Lactated Ringer's (Ringers, Lactated) 1,000 mls @ 100 mls/ hr IV ASDIRECTED FERNANDO. Last Admin: 08/13/19 14:22 Dose: 100 mls/hr. Oxytocin/ Lactated Ringer's (Pitocin In Lr 10 Units/1,000 Ml) 10 unit in 1,000 mls @ 12 mls/hr IV TITRATE FERNANDO; Protocol. Last Titration: 08/13/19 18:26 Dose: 3 munits /min, 18 mls/hr. Ondansetron HCl (Zofran) 4 mg IVPUSH Q4H PRN. PRN Reason: Nausea/Vomiting. Sodium Chloride (Saline Flush) 10 ml FLUSH ASDIRECTED PRN. PRN Reason: Keep Vein Open. Discontinued Medications. Ampicillin Sodium 2 gm/ Sodium (Chloride) 100 mls @ 200 mls/hr IV ONETIME ONE. Stop: 08/13/19 08:29. Last Admin: 08/13/19 08:15 Dose: 200 mls/hr. Misoprostol (Cytotec) Confirm Administered Dose 25 mcg .ROUTE .STK-MED ONE. Stop: 08/13/19 07:39. Last Admin : 08/13/19 11:08 Dose: Not Given. Misoprostol (Cytotec) 50 mcg VAG ONETIME ONE. Stop: 08/13/19 07:46. Last Admin: 08/13/19 07:47 Dose: 50 mcg. Misoprostol (Cytotec) 50 mcg VAG ONETIME ONE. Stop: 08/13/19 11:01. Last Admin: 08/13/19 11:05 Dose: 50 mcg. - Exam. General: Alert, Oriented. HEENT : Pupils Equal, Mucous Membr. Moist/[place]. Neck: Supple. Lungs: Clear to Auscultation, Normal Respiratory Effort. Cardiovascular: Regular Rate, Regular Rhythm. GI/Abdominal Exam: Normal Bowel Sounds, Soft, Non-Tender. (Female) Exam: Normal External Exam. Extremities: Normal Inspection, Non-Tender, No Pedal Edema, Normal Capillary Refill. Skin: Warm, Dry, Intact. Psy/Mental Status: Alert, Normal Affect, Normal Mood. - Problem List & Annotations. (1) 39 weeks gestation of . SNOMED Code(s): 17151292. Code(s): Z3A.39 - 39 WEEKS GESTATION OF Status: Acute Current Visit: Yes. (2) Nuchal cord without compression, delivered, current hospitalization. SNOMED Code(s): 69525588, 792118336. Code(s): O69.81X0 - LABOR AND DEL COMP BY CORD AROUND NECK, W/O COMPRSN, UNSP Status: Acute Current Visit: Yes. (3) True knot in cord. SNOMED Code(s): 38460634. Code(s): O69.2XX0 - LABOR AND DEL COMP BY OTH CORD ENTANGLE, W COMPRSN, UNSP Status: Acute Current Visit: Yes. Qualifiers: Fetus number: single or unspecified fetus Qualified Code(s) : O69.2XX0 - Labor and delivery complicated by other cord entanglement, with compression, not applicable or unspecified. (4) Born by normal vaginal delivery. SNOMED Code(s): 061355918. Code(s): O80 - ENCOUNTER FOR FULL-TERM UNCOMPLICATED DELIVERY Status: Acute Current Visit: Yes. (5) Umbilical cord , marginal insertion. SNOMED Code(s): 38413353. Code(s): NMX4694 - Status: Acute Current Visit: Yes. - Problem List Review. Problem List Initiated/ Reviewed/Updated: No. - My Orders. Last 24 Hours: My Active Orders. 07:42. Patient Status [ADT] Routine. Activity as Tolerated [RC] PFP. Communication Order [RC] ASDIRECTED. Non Stress Test [RC] PER UNIT ROUTINE. Notify Provider [RC] PFP. Notify Provider [RC] PRN. Urinary Catheter Assessment [RC] ASDIRECTED. Vital Signs [RC] PER UNIT ROUTINE. Ondansetron [Zofran] 4 mg IVPUSH Q4H PRN. Sodium Chloride 0.9% [Saline Flush ] 10 ml FLUSH ASDIRECTED PRN. Electronic Heart Tones Ext w TOCO [WOMSER ] Routine. Electronic Heart Tones Internal [WOMSER] Per Unit Routine. Peripheral IV Insertion Adult [OM.PC] Routine. Resuscitation Status Routine. 08/13/19 07:43. Heart Tones [RC] ASDIRECTED. Peripheral IV Care [RC] . DIRECTED. Pump Management, Intrathecal [RC] ASDIRECTED. 08/13/19 07:45. Lactated Ringers [Ringers, Lactated] 1,000 ml IV ASDIRECTED. 08/13/19 07:56. RAPID PLASMA REAGIN,RPR [CHEM] Routine. 08/13/19 12:00. Ampicillin 1 gm Sodium Chloride 0.9% [Normal Saline] 100 ml IV Q4H. Oxytocin/Lactated Ringers [ Pitocin in LR 10 Units/1,000 ML] 10 unit in 1,000 ml IV TITRATE. 08/13/19 Breakfast. Regular Diet [DIET]. - Plan. Plan:: Plan delivery. Salon for GBS prophylaxis Diagnosis: Stroke: No - Discharge Data Discharge Date: 08/14/19 Discharge Disposition: Home, Self-Care 01 Condition: Good - Referral to Home Health Primary Care Physician: Orion Chambers MD - Discharge Diagnosis/Problem(s) (1) 39 weeks gestation of SNOMED Code(s): 45583617 ICD Code: Z3A.39 - 39 WEEKS GESTATION OF Status: Acute Current Visit: Yes (2) Nuchal cord without compression, delivered, current hospitalization SNOMED Code(s): 50711178, 667503219 ICD Code: O69.81X0 - LABOR AND DEL COMP BY CORD AROUND NECK, W/O COMPRSN, UNSP Status: Acute Current Visit: Yes (3) True knot in cord SNOMED Code(s): 23924830 ICD Code: O69.2XX0 - LABOR AND DEL COMP BY OTH CORD ENTANGLE, W COMPRSN, UNSP Status: Acute Current Visit: Yes Qualifiers: Fetus number: single or unspecified fetus Qualified Code(s): O69.2XX0 - Labor and delivery complicated by other cord entanglement, with compression, not applicable or unspecified (4) Born by normal vaginal delivery SNOMED Code(s): 057139220 ICD Code: O80 - ENCOUNTER FOR FULL-TERM UNCOMPLICATED DELIVERY Status: Acute Current Visit: Yes (5) Umbilical cord, marginal insertion SNOMED Code(s): 67574231 ICD Code: [id number] - Status: Acute Current Visit: Yes - Patient Summary/Data Complications: none Consults: none Hospital Course: uneventful - Patient Instructions Diet: Usual Diet as Tolerated Driving: Do Not Drive (x48 hrs) Showering/Bathing: May Shower, No Tub Bathing/Swimming (x6 weeks) Notify Provider of: Fever, Increased Pain, Swelling and Redness, Drainage, Nausea and/or Vomiting - Discharge Plan *PRESCRIPTION DRUG MONITORING PROGRAM REVIEWED*: Not Applicable *COPY OF PRESCRIPTION DRUG MONITORING REPORT IN PATIENT DAMIEN: Not Applicable Home Medications: Home Meds [id number]/Iron Fumarate/FA/DSS [ 19 Tablet] 1 each PO DAILY 07/09/19 [ History] Ferrous Sulfate [Iron] 325 mg PO DAILY 08/13/19 [History] Acetaminophen [Tylenol] 650 mg PO Q6H PRN tablet 08/14/19 [Rx] Benzocaine/Menthol [Dermoplast Pain Relief [place]] 1 spray TOP ASDIRECTED PRN canister 08/14/19 [Rx] Docusate Sodium [Colace] 100 mg PO BID PRN cap 08/14/19 [Rx] Ibuprofen [Motrin] 600 mg PO Q6H PRN tablet 08/14/19 [Rx] rob Ambriz [Tucks] 1 pad TOP ASDIRECTED PRN pad 08/14/19 [Rx] Referrals: Orion Chambers MD [Primary Care Provider] - (has appointment in 2 weeks) - Discharge Summary/Plan Comment DC Time >30 min.: No - Patient Data Vitals - Most Recent: Last Vital Signs Temp 98.2 F 08/13/19 07:42 Pulse 122 H 08/13/19 21:00 Resp 16 08/13/19 07:42 BP 137/81 08/13/19 21:00 Pulse Ox 100 08/13/19 07:42 Weight - Most Recent: 174 lb Lab Results - Last 24 hrs: Laboratory Results - last 24 hr 08/13/19 08/14/19 Range/Units 07:56 05:43 WBC 11.44 H (3.98-10.04) K/mm3 RBC 3.65 L (3.98-5.22) M/mm3 Hgb 9.3 L (11.2-15.7) gm/dl Hct 29.5 L (34.1-44.9) % MCV 80.8 (79.4-94.8) fl MCH 25.5 L (25.6-32.2) pg MCHC 31.5 L (32.2-35.5) g/dl RDW Std Deviation 54.2 H (36.4-46.3) fL Plt Count 154 L (182-369) K/mm3 MPV 11.4 (9.4-12.3) fl Neut % (Auto) 75.3 H (34.0-71.1) % Lymph % (Auto) 15.2 L (19.3-51.7) % [place] % (Auto) 8.7 (4.7-12.5) % Eos % (Auto) 0.5 L (0.7-5.8) Baso % (Auto) 0.0 L (0.1-1.2) % Neut # (Auto) 8.61 H (1.56-6.13) K/mm3 Lymph # (Auto) 1.74 (1.18-3.74) K/mm3 [place] # (Auto) 0.99 H (0.24-0.36) K/mm3 Eos # (Auto) 0.06 (0.04-0.36) K/mm3 Baso # (Auto) 0.00 L (0.01-0.08) K/mm3 RPR Non-reactive (NONREACTIVE) Med Orders - Current: Current Medications Acetaminophen (Tylenol) 650 mg PO Q4H PRN PRN Reason: mild pain or fever Benzocaine/Menthol (Dermoplast Pain Relief [place]) 0 gm TOP ASDIRECTED PRN PRN Reason: Perineal Comfort Measure Last Admin: 08/14/19 01:00 Dose: 1 canister Docusate Sodium (Colace) 100 mg PO BID PRN PRN Reason: Constipation Ibuprofen (Motrin) 600 mg PO Q4H PRN PRN Reason: Mild pain or fever Last Admin: 08/14/19 03:32 Dose: 600 mg [place] (Tucks) 1 pad TOP ASDIRECTED PRN PRN Reason: Perineal Comfort Measure Last Admin: 08/14/19 01:00 Dose: 1 canister Discontinued Medications Bupivacaine HCl (Sensorcaine-Mpf 0.25%) 10 ml .ROUTE .STK-MED ONE Stop: 08/13/19 00:01 Carboprost Tromethamine (Hemabate Ds) Confirm Administered Dose 250 mcg .ROUTE .STK-MED ONE Stop: 08/13/19 20:19 Last Admin: 08/13/19 21:15 Dose: Not Given Carboprost Tromethamine (Hemabate Ds) 250 mcg IM ONETIME ONE Stop: 08/13/19 20:30 Last Admin: 08/13/19 20:44 Dose: 250 mcg Diphenhydramine HCl (Benadryl) 25 mg IVPUSH Q6H PRN PRN Reason: pruritis Ephedrine Sulfate (Ephedrine Sulfate) 5 mg IVPUSH ASDIRECTED PRN PRN Reason: Hypotension Fentanyl (Sublimaze) 100 mcg EPIDUR Q3H PRN PRN Reason: Pain Last Admin: 08/13/19 14:04 Dose: 100 mcg Fentanyl/Bupivacaine HCl (Fentanyl/Bupivacaine/Ns 2 Mcg-0.125% 100 Ml) 100 ml EPIDUR ASDIRECTED PRN PRN Reason: Pain Last Admin: 08/13/19 14:05 Dose: 100 ml Ampicillin Sodium 2 gm/ Sodium (Chloride) 100 mls @ 200 mls/hr IV ONETIME ONE Stop: 08/13/19 08:29 Last Admin: 08/13/19 08:15 Dose: 200 mls/hr Ampicillin Sodium 1 gm/ Sodium (Chloride) 100 mls @ 200 mls/hr IV Q4H FERNANDO Last Admin: 08/13/19 21:14 Dose: Not Given Lactated Ringer's (Ringers, Lactated) 1,000 mls @ 100 mls/hr IV ASDIRECTED FERNANDO Last Admin: 08/13/19 14:22 Dose: 100 mls/hr Oxytocin/Lactated Ringer's (Pitocin In Lr 10 Units/1,000 Ml) 10 unit in 1,000 mls @ 12 mls/hr IV TITRATE FERNANDO; Protocol Last Titration: 08/13/19 18:26 Dose: 3 munits/min, 18 mls/hr Misoprostol (Cytotec) Confirm Administered Dose 25 mcg .ROUTE .STK-MED ONE Stop: 08/13/19 07:39 Last Admin: 08/13/19 11:08 Dose: Not Given Misoprostol (Cytotec) 50 mcg VAG ONETIME ONE Stop: 08/13/19 07:46 Last Admin: 08/13/19 07:47 Dose: 50 mcg Misoprostol (Cytotec) 50 mcg VAG ONETIME ONE Stop: 08/13/19 11:01 Last Admin: 08/13/19 11:05 Dose: 50 mcg Misoprostol (Cytotec) Confirm Administered Dose 200 mcg .ROUTE .STK-MED ONE Stop: 08/13/19 20:18 Last Admin: 08/13/19 21:15 Dose: Not Given Misoprostol (Cytotec) 200 mcg PO ONETIME ONE Stop: 08/13/19 20:30 Last Admin: 08/13/19 20:45 Dose: 200 mcg Misoprostol (Cytotec) 400 mcg PO ONETIME ONE Stop: 08/14/19 03:01 Last Admin: 08/14/19 03:30 Dose: 400 mcg Ondansetron HCl (Zofran) 4 mg IVPUSH Q4H PRN PRN Reason: Nausea/Vomiting Last Admin: 08/13/19 20:40 Dose: 4 mg Sodium Chloride (Saline Flush) 10 ml FLUSH ASDIRECTED PRN PRN Reason: Keep Vein Open
== END 2019-08-15 12:35 | disposition home or self-care (01) | DRG 560 ==
LOC: JD.OB 06:54 → OBSVTOIN 19:38 → JD.OB 19:38
PROVIDERS: ADMIT Obstetrics & Gynecology; ATTEND Obstetrics & Gynecology
PROC: 10E0XZZ Delivery of Products of Conception, External Approach (ICD-10-PCS; principal; 2019-08-13)
PROC: 10907ZC Drainage of Amniotic Fluid, Therapeutic from Products of Conception, Via Natural or Artificial Opening (ICD-10-PCS; 2019-08-13)
PROC: 3E033VJ Introduction of Other Hormone into Peripheral Vein, Percutaneous Approach (ICD-10-PCS; 2019-08-13)
PROC: 3E0R3BZ Introduction of Anesthetic Agent into Spinal Canal, Percutaneous Approach (ICD-10-PCS; 2019-08-13)
DX: O69.81X0 Labor and delivery complicated by cord around neck, without compression, not applicable or unspecified (principal); O69.2XX0 Labor and delivery complicated by other cord entanglement, with compression, not applicable or unspecified; Z3A.39 39 weeks gestation of pregnancy; Z37.0 Single live birth
CPT/HCPCS: 36415; 51702; 59025; 59409; 85025; 86592; 86850; 86900; 86901; A9270-GY; J0290; J2405; J2590; J3010; J3490; J7050; J7120

== ENCOUNTER 2021-01-20 09:43 | Emergency (ER) | payer BC ==
[2021-01-20] MEDS ORDERED: Metoclopramide 10 MG/2 ML SDV IVPUSH ONE (10:20)
[2021-01-20] MEDS ORDERED: Sodium Chloride 0.9% 10 ML Syringe FLUSH PRN (10:20)
[2021-01-20] MEDS ORDERED: diphenhydrAMINE 50 MG/ML SDV IVPUSH ONE (10:21)
[2021-01-20] MEDS ORDERED: Ketorolac 30 MG/ML SDV IVPUSH ONE (10:21)
[2021-01-20] MEDS: Sodium Chloride 0.9% 1,000 ML IV SCH ×2 (10:38→11:27)
[2021-01-20] MEDS ORDERED: Sodium Chloride 0.9% 1,000 ML IV ONE (11:23)
[2021-01-20] MEDS ORDERED: Lactated Ringers 1,000 ML IV ONE (14:37)
--- NOTE | 2021-01-20 15:05 | EDM.PDOCBH ---
ED HPI GENERAL MEDICAL PROBLEM - General Chief Complaint: Behavioral/Psych Stated Complaint: ANXIETY Time Seen by Provider: 01/20/21 10:01 Source of Information: Reports: Patient History Limitations: Reports: No Limitations - History of Present Illness INITIAL COMMENTS - FREE TEXT/NARRATIVE: The patient presents with anxiety and syncopal episode. The patient had a panic attack yesterday and she may have passed out. Today she does not feel well. She has a severe headache, nausea, vomiting, generalized weakness and some abdominal pain. She has no fever, chills, cough, chest pain, or shortness of breath. Onset: Gradual Duration: Day(s): Location: Reports: Head Quality: Reports: Sharp Severity: Severe Improves with: Reports: None Worsens with: Reports: None Associated Symptoms: Reports: Headaches, Nausea/Vomiting. Denies: Chest Pain, Cough, Fever/Chills, Shortness of Breath Headache Pain Score (Numeric/FACES): 10 - Related Data Allergies Allergy/AdvReac Type Severity Reaction Status Date / Time No Known Allergies Allergy Verified 01/20/21 10:06 Home Meds: Home Meds Escitalopram Oxalate [Lexapro] 5 mg PO DAILY #30 tablet 01/20/21 [Rx] Past Medical History - Past Health History Medical/Surgical History: Denies Medical/Surgical History HEENT History: Reports: Impaired Vision Cardiovascular History: Reports: None Respiratory History: Reports: None Gastrointestinal History: Reports: GERD, Hemorrhoids Genitourinary History: Reports: UTI, Recurrent COATER History: Reports: Psychiatric History: Reports: Anxiety Hematologic History: Reports: Iron Deficiency - Infectious Disease History Infectious Disease History: Reports: Novel Coronavirus - Past Surgical History HEENT Surgical History: Reports: Oral Surgery GI Surgical History: Reports: Other (See Below) Other GI Surgeries/Procedures: gasrtric lengthening Musculoskeletal Surgical History: Reports: Other (See Below) Other Musculoskeletal Surgeries/Procedures:: bilateral gastrocnemius Social & Family History - Family History Family Medical History: No Pertinent Family History - Tobacco Use Tobacco Use Status *Q: Current Every Day Tobacco User Years of Tobacco use: 1 Packs/Tins Daily: 1 - Caffeine Use Caffeine Use: Reports: Coffee, Soda - Alcohol Use Days Per Week of Alcohol Use: 7 Number of Drinks Per Day: 3 Total Drinks Per Week: 21 - Recreational Drug Use Recreational Drug Use: No - Living Situation & Occupation Living situation: Reports: Single, with Significant Other (Boyfriend), with Family (Baby) Occupation: Employed ([employer]) ED ROS GENERAL - Review of Systems Review Of Systems: See Below Constitutional: Reports: Malaise, Weakness, Fatigue. Denies: Fever, Chills HEENT: Reports: No Symptoms Respiratory: Reports: No Symptoms Cardiovascular: Reports: Syncope. Denies: Chest Pain Endocrine: Reports: No Symptoms GI/Abdominal: Reports: Nausea, Vomiting. Denies: Abdominal Pain : Reports: No Symptoms Musculoskeletal: Reports: No Symptoms ED EXAM, BEHAVIORAL HEALTH - Physical Exam Exam: See Below Exam Limited By: No Limitations General Appearance: Alert, No Apparent Distress Ears: Normal External Exam Nose: Normal Inspection Head: Atraumatic, Normocephalic Neck: Normal Inspection Respiratory/Chest: No Respiratory Distress, Lungs Clear, Normal Breath Sounds Cardiovascular: Regular Rate, Rhythm, No Edema, No Murmur GI/Abdominal: Soft, Non-Tender, No Organomegaly, No Mass Back Exam: Normal Inspection Extremities: Normal Inspection #1 Interpretation EKG Date: 01/20/21 Time: 10:35 Rhythm: NSR Rate (Beats/Min): 85 [place]: Normal P-Wave: Present QRS: Normal ST-T: Normal QT: Normal COURSE, BEHAVIORAL HEALTH COMP - Course Vital Signs: Last Vital Signs Temp 97.3 F 01/20/21 10:04 Pulse 85 01/20/21 10:04 Resp 20 01/20/21 10:04 BP 82/42 L 01/20/21 10:04 Pulse Ox 95 01/20/21 10:04 Orders, Labs, Meds: Active Orders 24 hr Category Date Time Status Cardiac Monitoring [RC] . DIRECTED Care 01/20/21 10:20 Active EKG Documentation Completion [RC] STAT Care 01/20/21 10:21 Active Peripheral IV Care [RC] . DIRECTED Care 01/20/21 10:21 Active Lactated Ringers [Ringers, Lactated] 1,000 ml Med 01/20/21 14:37 Active IV .BOLUS Sodium Chloride 0.9% [Normal Saline] 1,000 ml Med 01/20/21 10:30 Active IV .BOLUS Sodium Chloride 0.9% [Saline Flush] Med 01/20/21 10:20 Active 10 ml FLUSH ASDIRECTED PRN ED Antiemetic Medication Reflex [OM.PC] Stat Oth 01/20/21 10:21 Ordered Peripheral IV Insertion Adult [OM.PC] Stat Oth 01/20/21 10:20 Ordered Medication Orders Sodium Chloride (Normal Saline) 1,000 mls @ 1,000 mls/hr IV .BOLUS FERNANDO Last Admin: 01/20/21 11:27 Dose: 1,000 mls/hr Documented by: Infusion: 01/20/21 11:27 Dose: 1,000 mls/hr Documented by: Admin: 01/20/21 10:38 Dose: 1,000 mls/hr Documented by: TATY Lactated Ringer's (Ringers, Lactated) 1,000 mls @ 1,000 mls/hr IV .BOLUS ONE Stop: 01/20/21 15:36 Last Admin: 01/20/21 14:44 Dose: 1,000 mls/hr Documented by: TATY Sodium Chloride (Sodium Chloride 0.9% 10 Ml Syringe) 10 ml FLUSH ASDIRECTED PRN PRN Reason: Keep Vein Open Last Admin: 01/20/21 10:41 Dose: 10 ml Documented by: TATY Laboratory Tests 01/20/21 01/20/21 01/20/21 Range/Units 10:05 10:05 10:05 WBC 9.80 (3.98-10.04) K/mm3 RBC 4.18 (3.98-5.22) M/mm3 Hgb 11.9 D (11.2-15.7) gm/dl Hct 36.6 (34.1-44.9) % MCV 87.6 D (79.4-94.8) fl MCH 28.5 (25.6-32.2) pg MCHC 32.5 (32.2-35.5) g/dl RDW Std Deviation 41.2 (36.4-46.3) fL Plt Count 211 (182-369) K/mm3 MPV 11.0 (9.4-12.3) fl Neut % (Auto) 71.0 (34.0-71.1) % Lymph % (Auto) 13.3 L (19.3-51.7) % [place] % (Auto) 15.1 H (4.7-12.5) % Eos % (Auto) 0.1 L (0.7-5.8) Baso % (Auto) 0.2 (0.1-1.2) % Neut # (Auto) 6.96 H (1.56-6.13) K/mm3 Lymph # (Auto) 1.30 (1.18-3.74) K/mm3 [place] # (Auto) 1.48 H (0.24-0.36) K/mm3 Eos # (Auto) 0.01 L (0.04-0.36) K/mm3 Baso # (Auto) 0.02 (0.01-0.08) K/mm3 Manual Slide Review Abnormal smear Sodium 139 (136-145) mEq/L Potassium 3.3 L (3.5-5.1) mEq/L Chloride 102 (98-107) mEq/L Carbon Dioxide 24 (21-32) mEq/L Anion Gap 16.3 H (5-15) BUN 8 (7-18) mg/dL Creatinine 1.2 H (0.55-1.02) mg/dL Est Cr Clr Drug Dosing 66.73 mL/min Estimated GFR (MDRD) 57 (>60) mL/min BUN/Creatinine Ratio 6.7 L (14-18) Glucose 120 H (70-99) mg/dL Calcium 8.3 L (8.5-10.1) mg/dL Magnesium 1.8 (1.8-2.4) mg/dL Total Bilirubin 1.2 H (0.2-1.0) mg/dL AST 30 (15-37) U/L ALT 35 (14-59) U/L Alkaline Phosphatase 61 (46-116) U/L Total Protein 7.1 (6.4-8.2) g/dl Albumin 3.6 (3.4-5.0) g/dl Globulin 3.5 gm/dL Albumin/Globulin Ratio 1.0 (1-2) HCG, Qual Negative (NEGATIVE) Salicylates (2.8-20) mg/dL Urine Opiates Screen (MFZXYU=815) Ur Buprenorphine Scrn (CUTOFF=10) Ur Oxycodone Screen (HOY4IG=584) Urine Methadone Screen (NCEBDB=544) Ur Propoxyphene Screen (RFKMCT=082) Acetaminophen (10-30) ug/mL Ur Barbiturates Screen (JQTHHW=706) Ur Tricyclics Screen (PCYGEQ=793) Ur Phencyclidine Scrn (CUTOFF=25) Ur Amphetamine Screen (CFKPCW=799) U Methamphetamines Scrn (SNOIXH=638) U Benzodiazepines Scrn (PFYNWU=797) U Cocaine Metab Screen (ARGGJV=035) U Marijuana (THC) Screen (CUTOFF=50) Ethyl Alcohol (0.00) gm% 01/20/21 01/20/21 01/20/21 Range/Units 10:05 10:05 12:25 WBC (3.98-10.04) K/mm3 RBC (3.98-5.22) M/mm3 Hgb (11.2-15.7) gm/dl Hct (34.1-44.9) % MCV (79.4-94.8) fl MCH (25.6-32.2) pg MCHC (32.2-35.5) g/dl RDW Std Deviation (36.4-46.3) fL Plt Count (182-369) K/mm3 MPV (9.4-12.3) fl Neut % (Auto) (34.0-71.1) % Lymph % (Auto) (19.3-51.7) % [place] % (Auto) (4.7-12.5) % Eos % (Auto) (0.7-5.8) Baso % (Auto) (0.1-1.2) % Neut # (Auto) (1.56-6.13) K/mm3 Lymph # (Auto) (1.18-3.74) K/mm3 [place] # (Auto) (0.24-0.36) K/mm3 Eos # (Auto) (0.04-0.36) K/mm3 Baso # (Auto) (0.01-0.08) K/mm3 Manual Slide Review Sodium (136-145) mEq/L Potassium (3.5-5.1) mEq/L Chloride (98-107) mEq/L Carbon Dioxide (21-32) mEq/L Anion Gap (5-15) BUN (7-18) mg/dL Creatinine (0.55-1.02) mg/dL Est Cr Clr Drug Dosing mL/min Estimated GFR (MDRD) (>60) mL/min BUN/Creatinine Ratio (14-18) Glucose (70-99) mg/dL Calcium (8.5-10.1) mg/dL Magnesium (1.8-2.4) mg/dL Total Bilirubin (0.2-1.0) mg/dL AST (15-37) U/L ALT (14-59) U/L Alkaline Phosphatase (46-116) U/L Total Protein (6.4-8.2) g/dl Albumin (3.4-5.0) g/dl Globulin gm/dL Albumin/Globulin Ratio (1-2) HCG, Qual (NEGATIVE) Salicylates < 0.2 L (2.8-20) mg/dL Urine Opiates Screen Negative (DMROOJ=232) Ur Buprenorphine Scrn Negative (CUTOFF=10) Ur Oxycodone Screen Negative (ZYV0OA=037) Urine Methadone Screen Negative (RREJHI=603) Ur Propoxyphene Screen Negative (EVAAOU=227) Acetaminophen 6 L (10-30) ug/mL Ur Barbiturates Screen Negative (RUIEAR=784) Ur Tricyclics Screen Negative (FTLPXM=623) Ur Phencyclidine Scrn Negative (CUTOFF=25) Ur Amphetamine Screen Negative (VBJLQA=532) U Methamphetamines Scrn Negative (TLNIWC=802) U Benzodiazepines Scrn Negative (HLCARQ=514) U Cocaine Metab Screen Negative (CNBXNT=944) U Marijuana (THC) Screen Negative (CUTOFF=50) Ethyl Alcohol 0.00 (0.00) gm% Medications Generic Name Dose Route Start Last Admin Trade Name Freq PRN Reason Stop Dose Admin Sodium Chloride 1,000 mls @ 1,000 mls/hr 01/20/21 10:30 01/20/21 11:27 Normal Saline IV 1,000 mls/hr .BOLUS FERNANDO Administration Lactated Ringer's 1,000 mls @ 1,000 mls/hr 01/20/21 14:37 01/20/21 14:44 Ringers, Lactated IV 01/20/21 15:36 1,000 mls/hr .BOLUS ONE Administration Sodium Chloride 10 ml 01/20/21 10:20 01/20/21 10:41 Sodium Chloride 0.9% 10 Ml Syringe FLUSH 10 ml ASDIRECTED PRN Administration Keep Vein Open Discontinued Medications Generic Name Dose Route Start Last Admin Trade Name Freq PRN Reason Stop Dose Admin Diphenhydramine HCl 50 mg 01/20/21 10:21 01/20/21 10:38 Diphenhydramine 50 Mg/Ml Sdv IVPUSH 01/20/21 10:22 50 mg ONETIME ONE Administration Sodium Chloride 1,000 mls @ 1,000 mls/hr 01/20/21 11:23 01/20/21 11:28 Normal Saline IV 01/20/21 12:22 1,000 mls/hr ONETIME ONE Administration Ketorolac Tromethamine 30 mg 01/20/21 10:21 01/20/21 10:38 Ketorolac 30 Mg/Ml Sdv IVPUSH 01/20/21 10:22 30 mg ONETIME ONE Administration Metoclopramide HCl 10 mg 01/20/21 10:20 01/20/21 10:38 Metoclopramide 10 Mg/2 Ml Sdv IVPUSH 01/20/21 10:21 10 mg ONETIME ONE Administration Re-Assessment/Re-Exam: I ordered an IV NS 1L bolus, reglan 10mg IV, toradol 30mg IV, benadryl 50mg IV, labs, and EKG. Her EKG shows a NSR with no acute changes. Her CBC looks good. Her K was low at 3.3. Her anion gap is elevated at 16.3. Her creatinine was elevated at 1.2. Her glucose is 120. Her total bili is e levated at 1.2. Her HCG is negative. Her blood pressure was low at 82 systolic and she did not respond to that fluids much. I ordered another liter of fluid. She tells my nurse that she has been drinking heavily but not for a few days. She has thoughts of hurting herself but no plan. I then ordered a urine drug screen, alcohol, salicylates and acetaminophen. Her drug screen was normal. Her ETOH was 0,. Her salicylates and acetaminophen were negative. She wanted to eat so I ordered her a tray. Her BP was down still so I ordered more fluids. After eating her blood pressure went up. I will discharge her home. She feels much better. I will get her on something for her anxiety. Departure - Departure Time of Disposition: 15:35 Disposition: Home, Self-Care 01 Condition: Good Clinical Impression: Anxiety, Dehydration - Discharge Information *PRESCRIPTION DRUG MONITORING PROGRAM REVIEWED*: Not Applicable *COPY OF PRESCRIPTION DRUG MONITORING REPORT IN PATIENT DAMIEN: Not Applicable Prescriptions: Escitalopram Oxalate [Lexapro] 5 mg PO DAILY #30 tablet Referrals: PCP,None [Primary Care Provider] - Karie Fields MD [Physician] - 1 Week Forms: ED Department Discharge Additional Instructions: Drink plenty of fluids. Take the lexapro 1/2 pill or 5mg daily. Follow up with Dr Fields in our clinic within a week. Please return if you are worse. Sepsis Event Note (ED) - Evaluation Sepsis Screening Result: No Definite Risk - Focused Exam Vital Signs: Vital Signs Temp Pulse Resp BP Pulse Ox 01/20/21 10:04 97.3 F 85 20 82/42 L 95 - My Orders Last 24 Hours: My Active Orders 01/20/21 10:20 Cardiac Monitoring [RC] . DIRECTED Sodium Chloride 0.9% [Saline Flush] 10 ml FLUSH ASDIRECTED PRN Peripheral IV Insertion Adult [OM.PC] Stat 01/20/21 10:21 EKG Documentation Completion [RC] STAT Peripheral IV Care [RC] . DIRECTED ED Antiemetic Medication Reflex [OM.PC] Stat 01/20/21 10:30 Sodium Chloride 0.9% [Normal Saline] 1,000 ml IV .BOLUS 01/20/21 14:37 Lactated Ringers [Ringers, Lactated] 1,000 ml IV .BOLUS - Assessment/Plan Last 24 Hours: My Active Orders 01/20/21 10:20 Cardiac Monitoring [RC] . DIRECTED Sodium Chloride 0.9% [Saline Flush] 10 ml FLUSH ASDIRECTED PRN Peripheral IV Insertion Adult [OM.PC] Stat 01/20/21 10:21 EKG Documentation Completion [RC] STAT Peripheral IV Care [RC] . DIRECTED ED Antiemetic Medication Reflex [OM.PC] Stat 01/20/21 10:30 Sodium Chloride 0.9% [Normal Saline] 1,000 ml IV .BOLUS 01/20/21 14:37 Lactated Ringers [Ringers, Lactated] 1,000 ml IV .BOLUS
== END 2021-01-20 15:59 | disposition home or self-care (01) ==
LOC: JD.ED 09:43
DX: F41.9 Anxiety disorder, unspecified (principal); E86.0 Dehydration; Z86.16 Personal history of COVID-19; Z72.0 Tobacco use
CPT/HCPCS: 36415; 80053; 80143; 80179; 80306; 80307; 83735; 84703; 85025; 93005; 96374; 96375; 99284; J1200; J1885; J2765; J7030; J7120; 93010

== ENCOUNTER 2021-06-13 19:41 | Emergency (ER) | payer BC ==
[2021-06-13] MEDS ORDERED: Sodium Chloride 0.9% 1,000 ML IV STA (19:57)
--- NOTE | 2021-06-13 21:20 | EDM.PDOC ---
ED HPI GENERAL MEDICAL PROBLEM - General Chief Complaint: Genitourinary Problem Stated Complaint: DIARHEA/LETHARGIC Time Seen by Provider: 06/13/21 19:50 Source of Information: Reports: Patient, RN Notes Reviewed History Limitations: Reports: No Limitations - History of Present Illness INITIAL COMMENTS - FREE TEXT/NARRATIVE: Patient is a 21-year-old female presenting to the emergency department with complaints of headache, body aches, diarrhea, nausea, and low back pain. She feels that she likely has a kidney infection as she has had been having urinary symptoms off and on for a few weeks. She is not had documented fevers, however she has felt chilled. She is not vaccinated against Covid, however she states she had it in July. Denies any cough or shortness of breath. 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." Respiratory History: Reports: None Gastrointestinal History: Reports: GERD, Hemorrhoids Genitourinary History: Reports: Pyelonephritis, UTI, Recurrent BREAD ROOM HAND History: Reports: Psychiatric History: Reports: Anxiety Hematologic History: Reports: Iron Deficiency - Infectious Disease History Infectious Disease History: Reports: Novel Coronavirus - Past Surgical History HEENT Surgical History: Reports: Oral Surgery GI Surgical History: Reports: Other (See Below) Other GI Surgeries/Procedures: gastric lengthening Musculoskeletal Surgical History: Reports: Other (See Below) Other Musculoskeletal Surgeries/Procedures:: bilateral gastrocnemius Social & Family History - Family History Family Medical History: No Pertinent Family History - Caffeine Use Caffeine Use: Reports: Coffee, Soda - Recreational Drug Use Recreational Drug Use: No - Living Situation & Occupation Living situation: Reports: Single, with Significant Other (Boyfriend), with Family (Baby) Occupation: Employed ([employer]) ED ROS GENERAL - Review of Systems Review Of Systems: See Below Constitutional: Reports: Chills, Decreased Appetite HEENT: Reports: No Symptoms Respiratory: Reports: No Symptoms. Denies: Shortness of Breath, Cough Cardiovascular: Reports: No Symptoms Endocrine: Reports: No Symptoms GI/Abdominal: Reports: Abdominal Pain (Intermittent cramping), Diarrhea, Nausea. Denies: Vomiting : Reports: Flank Pain, Frequency Musculoskeletal: Reports: Back Pain, Other (Body aches) Skin: Reports: No Symptoms Neurological: Reports: Headache. Denies: Confusion, Dizziness Psychiatric: Reports: No Symptoms Hematologic/Lymphatic: Reports: No Symptoms Immunologic: Reports: No Symptoms ED EXAM, RENAL/ - Physical Exam Exam: See Below Exam Limited By: No Limitations General Appearance: Alert, WD/WN, No Apparent Distress Respiratory/Chest: No Respiratory Distress, Lungs Clear, Normal Breath Sounds, No Accessory Muscle Use, Chest Non-Tender Cardiovascular: Normal Peripheral Pulses, Regular Rate, Rhythm, No Edema, No Gallop, No JVD, No Murmur, No Rub GI/Abdominal: Normal Bowel Sounds, Soft, No Organomegaly, No Distention, No Abnormal Bruit, No Mass, Tender (Suprapubic) Back Exam: Normal Inspection, Full Range of Motion, CVA Tenderness (L), CVA Tenderness (R) Neurological: Alert, Oriented, Normal Cognition, Normal Gait, No Motor/Sensory Deficits Psychiatric: Normal Affect, Normal Mood Skin Exam: Warm, Dry, Intact, Normal Color, No Rash Course - Vital Signs Last Recorded V/S: Last Vital Signs Temp 99.6 F 06/13/21 21:35 Pulse 103 H 06/13/21 21:35 Resp 15 06/13/21 21:35 BP 120/66 06/13/21 21:35 Pulse Ox 100 06/13/21 21:35 - Orders/Labs/Meds Orders: Active Orders 24 hr Category Date Time Status CULTURE URINE [MREF] Stat Lab 06/13/21 19:51 Received Labs: Laboratory Tests 06/13/21 06/13/21 06/13/21 Range/Units 19:57 20:10 20:10 WBC 7.08 (3.98-10.04) K/mm3 RBC 4.21 (3.98-5.22) M/mm3 Hgb 11.6 (11.2-15.7) gm/dl Hct 35.5 (34.1-44.9) % MCV 84.3 D (79.4-94.8) fl MCH 27.6 (25.6-32.2) pg MCHC 32.7 (32.2-35.5) g/dl RDW Std Deviation 41.4 (36.4-46.3) fL Plt Count 137 L (182-369) K/mm3 MPV 11.0 (9.4-12.3) fl Neut % (Auto) 82.2 H (34.0-71.1) % Lymph % (Auto) 10.2 L (19.3-51.7) % Snyder % (Auto) 7.1 (4.7-12.5) % Eos % (Auto) 0.3 L (0.7-5.8) Baso % (Auto) 0.1 (0.1-1.2) % Neut # (Auto) 5.82 (1.56-6.13) K/mm3 Lymph # (Auto) 0.72 L (1.18-3.74) K/mm3 Snyder # (Auto) 0.50 H (0.24-0.36) K/mm3 Eos # (Auto) 0.02 L (0.04-0.36) K/mm3 Baso # (Auto) 0.01 (0.01-0.08) K/mm3 Sodium 136 (136-145) mEq/L Potassium 3.6 (3.5-5.1) mEq/L Chloride 98 (98-107) mEq/L Carbon Dioxide 24 (21-32) mEq/L Anion Gap 17.6 H (5-15) BUN 13 (7-18) mg/dL Creatinine 1.0 (0.55-1.02) mg/dL Est Cr Clr Drug Dosing 79.40 mL/min Estimated GFR (MDRD) > 60 (>60) mL/min BUN/Creatinine Ratio 13.0 L (14-18) Glucose 222 H (70-99) mg/dL Calcium 8.2 L (8.5-10.1) mg/dL Total Bilirubin 0.6 (0.2-1.0) mg/dL AST 16 (15-37) U/L ALT 19 (14-59) U/L Alkaline Phosphatase 50 (46-116) U/L C-Reactive Protein 10.7 H* (<1.0) mg/dL Total Protein 7.4 (6.4-8.2) g/dl Albumin 4.2 (3.4-5.0) g/dl Globulin 3.2 gm/dL Albumin/Globulin Ratio 1.3 (1-2) Urine Color Yellow (Yellow) Urine Appearance Slt cloudy H (Clear) Urine pH 6.0 (5.0-8.0) Ur Specific Walton 1.025 (1.005-1.030) Urine Protein 2+ H (Negative) Urine Glucose (UA) Negative (Negative) Urine Ketones Negative (Negative) Urine Occult Blood Trace-lysed H (Negative) Urine Nitrite Negative (Negative) Urine Bilirubin Negative (Negative) Urine Urobilinogen 0.2 (0.2-1.0) Ur Leukocyte Esterase 1+ H (Negative) U Hyaline Cast (Auto) 5-10 H (0-5) /lpf Urine RBC 0-5 (0-5) /hpf Urine WBC 20-30 H (0-5) /hpf Urine WBC Clumps Few (NOT SEEN) /hpf Ur Squamous Epith Cells 0-5 (0-5) /hpf Urine Bacteria Few (FEW) /hpf Urine Mucus Few (FEW) /hpf Influenza Type A RNA (NEGATIVE) Influenza Type B RNA (NEGATIVE) SARS-CoV-2 RNA (RIK) (NEGATIVE) 06/13/21 Range/Units 21:14 WBC (3.98-10.04) K/mm3 RBC (3.98-5.22) M/mm3 Hgb (11.2-15.7) gm/dl Hct (34.1-44.9) % MCV (79.4-94.8) fl MCH (25.6-32.2) pg MCHC (32.2-35.5) g/dl RDW Std Deviation (36.4-46.3) fL Plt Count (182-369) K/mm3 MPV (9.4-12.3) fl Neut % (Auto) (34.0-71.1) % Lymph % (Auto) (19.3-51.7) % Snyder % (Auto) (4.7-12.5) % Eos % (Auto) (0.7-5.8) Baso % (Auto) (0.1-1.2) % Neut # (Auto) (1.56-6.13) K/mm3 Lymph # (Auto) (1.18-3.74) K/mm3 Snyder # (Auto) (0.24-0.36) K/mm3 Eos # (Auto) (0.04-0.36) K/mm3 Baso # (Auto) (0.01-0.08) K/mm3 Sodium (136-145) mEq/L Potassium (3.5-5.1) mEq/L Chloride (98-107) mEq/L Carbon Dioxide (21-32) mEq/L Anion Gap (5-15) BUN (7-18) mg/dL Creatinine (0.55-1.02) mg/dL Est Cr Clr Drug Dosing mL/min Estimated GFR (MDRD) (>60) mL/min BUN/Creatinine Ratio (14-18) Glucose (70-99) mg/dL Calcium (8.5-10.1) mg/dL Total Bilirubin (0.2-1.0) mg/dL AST (15-37) U/L ALT (14-59) U/L Alkaline Phosphatase (46-116) U/L C-Reactive Protein (<1.0) mg/dL Total Protein (6.4-8.2) g/dl Albumin (3.4-5.0) g/dl Globulin gm/dL Albumin/Globulin Ratio (1-2) Urine Color (Yellow) Urine Appearance (Clear) Urine pH (5.0-8.0) Ur Specific Walton (1.005-1.030) Urine Protein (Negative) Urine Glucose (UA) (Negative) Urine Ketones (Negative) Urine Occult Blood (Negative) Urine Nitrite (Negative) Urine Bilirubin (Negative) Urine Urobilinogen (0.2-1.0) Ur Leukocyte Esterase (Negative) U Hyaline Cast (Auto) (0-5) /lpf Urine RBC (0-5) /hpf Urine WBC (0-5) /hpf Urine WBC Clumps (NOT SEEN) /hpf Ur Squamous Epith Cells (0-5) /hpf Urine Bacteria (FEW) /hpf Urine Mucus (FEW) /hpf Influenza Type A RNA Negative (NEGATIVE) Influenza Type B RNA Negative (NEGATIVE) SARS-CoV-2 RNA (RIK) Negative (NEGATIVE) Meds: Medications Discontinued Medications Generic Name Dose Route Start Last Admin Trade Name Freq PRN Reason Stop Dose Admin Cefdinir 300 mg 06/13/21 21:23 06/13/21 21:34 Cefdinir 300 Mg Cap PO 06/13/21 21:24 300 mg ONETIME ONE Administration Sodium Chloride 1,000 mls @ 999 mls/hr 06/13/21 19:57 06/13/21 20:20 Normal Saline IV 06/13/21 20:57 999 mls/hr NOW STA Administration - Re-Assessments/Exams Free Text/Narrative Re-Assessment/Exam: Patient is a 21-year-old female presenting to the emergency department for evaluation of headache, diarrhea, chills, body aches, nausea, intermittent urinary frequency for the last few weeks, and abdominal cramping. On exam, she has bilateral CVA tenderness. Temperature in triage was 98.3, however she felt much warmer than this. Recheck of her temperature was 100.3. Exam is otherwise unremarkable. I have ordered blood work and urinalysis. I gave her 1 L bolus of normal saline. I did recommend that we test patient for Covid and influenza as the symptoms she is experiencing could also be caused by this. She would like to be tested for the UTI first. 06/13/21 21:22 Hematology significant for WBC normal at 7.08, anion gap 17.6, CRP 10.7. Urinalysis shows 1+ leukocyte esterase and 20-30 WBCs suggestive of urinary tract infection. Blood work and urinalysis do not necessarily explain the wide range of symptoms she is experiencing. Her white count is normal. While this could be all related to urinary tract infection, did recommend that she be tested for influenza and Covid as well. She has agreed to this. Will not make her wait in the ER. I will call her with results. In the meantime she will be started on Omnicef for treatment of urinary tract infection. This would cover for any possible kidney infection as well. She is in agreement with this plan. Discharge instructions as documented. 06/13/21 22:09 Called patient to notify of negative Covid and influenza swab, however there was no answer. There was no voicemail. Departure - Departure Time of Disposition: 21:22 Disposition: Home, Self-Care 01 Condition: Good Clinical Impression: UTI, Urinary tract infectious disease - Discharge Information *PRESCRIPTION DRUG MONITORING PROGRAM REVIEWED*: No *COPY OF PRESCRIPTION DRUG MONITORING REPORT IN PATIENT DAMIEN: No Prescriptions: Cefdinir [Omnicef] 300 mg PO BID 10 Days #20 tab Instructions: Urinary Tract Infection, Adult, [id number] Referrals: PCP,None [Primary Care Provider] - Forms: ED Department Discharge Additional Instructions: Use Tylenol and ibuprofen as needed for fever and discomfort. Take the cefdinir as prescribed. First dose was given in ER. Increase intake of oral fluids. We will contact you with your Covid and influenza test results once they are available. Should experience any new or worsening symptoms, please do not hesitate to return to the emergency department for reevaluation. Sepsis Event Note (ED) - Evaluation Sepsis Screening Result: No Definite Risk - Focused Exam Vital Signs: Vital Signs Temp Pulse Resp BP Pulse Ox 06/13/21 21:35 99.6 F 103 H 15 120/66 100 06/13/21 20:56 100.3 F 06/13/21 19:54 98.8 F 119 H 16 134/82 100 - My Orders Last 24 Hours: My Active Orders 06/13/21 19:51 CULTURE URINE [MREF] Stat - Assessment/Plan Last 24 Hours: My Active Orders 06/13/21 19:51 CULTURE URINE [MREF] Stat
[2021-06-13] MEDS ORDERED: Cefdinir 300 MG Cap PO ONE (21:23)
[2021-06-13 21:57] LABS: CORONAVIRUS COVID-19 NAA NEGATIVE (NEGATIVE)
== END 2021-06-13 20:42 | disposition home or self-care (01) ==
LOC: JD.ED 19:41
DX: N39.0 Urinary tract infection, site not specified (principal); Z20.822 Contact with and (suspected) exposure to COVID-19
CPT/HCPCS: 0240U; 36415; 80053; 81001; 85025; 86140; 87086; 87088; 87186; 99284; A9270; J7030

== ENCOUNTER 2021-12-17 04:39 | Emergency (ER) | payer BC ==
[2021-12-17] MEDS ORDERED: Acetaminophen 325 MG Tab PO ONE (08:59)
[2021-12-17] MEDS ORDERED: LORazepam 0.5 MG Tab PO ONE (10:20)
== END 2021-12-17 11:32 | disposition other institution (70) ==
LOC: JD.ED 04:39
DX: F32.A Depression, unspecified (principal); R45.851 Suicidal ideations; F17.210 Nicotine dependence, cigarettes, uncomplicated; Z28.310 Unvaccinated for COVID-19; Z20.822 Contact with and (suspected) exposure to COVID-19
CPT/HCPCS: 36415; 80053; 80143; 80179; 80306; 80307; 81025; 84443; 85025; 87635; 93005; 99285; A9270; U0002

== ENCOUNTER 2022-07-04 12:01 | Emergency (ER) | payer BC ==
[2022-07-04] MEDS ORDERED: Sodium Chloride 0.9% 10 ML Syringe FLUSH PRN (12:42)
[2022-07-04] MEDS ORDERED: Sodium Chloride 0.9% 1,000 ML IV STA (12:55)
[2022-07-04 16:13] LABS: CORONAVIRUS COVID-19 NAA NEGATIVE (NEGATIVE)
== END 2022-07-04 16:17 | disposition home or self-care (01) ==
LOC: JD.ED 12:01
DX: O03.9 Complete or unspecified spontaneous abortion without complication (principal); Z86.16 Personal history of COVID-19; Z20.822 Contact with and (suspected) exposure to COVID-19
CPT/HCPCS: 0241U; 36415; 76856; 76856-26; 80053; 84702; 85025; 86900; 86901; 96360; 99284-25; J3490; J7030

== ENCOUNTER 2022-10-24 22:36 | Emergency (ER) | payer BC ==
[2022-10-24] MEDS: Morphine 4 MG/ML Syringe IVPUSH PRN (23:29)
[2022-10-25] MEDS: Morphine 4 MG/ML Syringe IVPUSH PRN (01:01)
[2022-10-25] MEDS ORDERED: HYDROmorphone 0.5 MG/0.5 ML Syringe IVPUSH ONE (01:25)
== END 2022-10-25 01:52 | disposition home or self-care (01) ==
LOC: JD.ED 22:36
DX: R10.31 Right lower quadrant pain (principal); Z86.16 Personal history of COVID-19
CPT/HCPCS: 36415; 74177; 80053; 81001; 81025; 83690; 85025; 96374; 96375; 99284; J1170; J2270

== ENCOUNTER 2023-02-23 03:15 | Emergency (ER) | payer BC ==
[2023-02-23 04:56] LABS: BASOPHILS PERCENT AUTO 0.4 % (0.0-1.0); EOSINOPHILS ABSOLUTE AUTO 0.1 K/mm3 (0.0-0.4); EOSINOPHILS PERCENT AUTO 2.6 % (0.0-6.0); HEMATOCRIT 37.5 % (37.0-47.0); HEMOGLOBIN 12.1 gm/dl (12.0-16.0); IMMATURE GRAN ABSOLUTE AUTO 0.02 K/mm3 (0.00-0.05); IMMATURE GRAN PERCENT AUTO 0.4 % (0.0-0.4); MEAN CORPUSCULAR HEMOGLOBIN 28.1 pg (28.0-32.0); MEAN CORPUSCULAR HGB CONC 32.3 g/dl (32.0-36.0); MEAN PLATELET VOLUME 10.1 fl (9.4-12.3); MONOCYTES ABSOLUTE AUTO 0.3 K/mm3 (0.0-0.8); NEUTROPHILS PERCENT AUTO 53.6 % (41.0-71.0); PLATELET COUNT,PLT 268 K/mm3 (150-400); RED BLOOD CELL COUNT 4.31 M/mm3 (4.10-5.30); WHITE BLOOD CELL COUNT,WBC 5.49 K/mm3 (3.9-11.3)
[2023-02-23 05:01] LABS: BARBITURATE SCREEN,URINE NEGATIVE (CUTOFF=200); BENZODIAZEPINES SCREEN,URINE NEGATIVE (CUTOFF=150); BUPRENORPHINE SCREEN,URINE NEGATIVE (CUTOFF=10); METHADONE SCREEN, URINE NEGATIVE (CUTOFF=200); METHAMPHETAMINES SCREEN, URINE NEGATIVE (CUTOFF=500); OXYCODONE SCREEN,URINE NEGATIVE (CUT0FF=100); PROPOXYPHENE SCREEN,URINE NEGATIVE (CUTOFF=300); THC SCREEN,URINE 20 NG/ML NEGATIVE (CUTOFF=50)
[2023-02-23 05:03] LABS: AMPHETAMINES SCREEN, URINE NEGATIVE (CUTOFF=500)
[2023-02-23 05:27] LABS: A/G RATIO 1.3 (1-2); ALBUMIN 4.1 g/dl (3.4-5.0); ANION GAP 13.7 (5-15); BILIRUBIN TOTAL 0.2 mg/dL (0.2-1.0); BUN/CREATININE RATIO 6.7 (14-18); CALCIUM 8.7 mg/dL (8.5-10.1); CREATININE 0.6 mg/dL (0.55-1.02); EST CRCL DRUG DOSING (CG) 130.1 mL/min; ETHANOL BLOOD MEDICAL 0.18 gm% (0.00); POTASSIUM,K 3.7 mEq/L (3.5-5.1); PROTEIN TOTAL,TP 7.3 g/dl (6.4-8.2); TSH 0.787 uIU/mL (0.358-3.74)
[2023-02-23] MEDS ORDERED: hydrOXYzine HCl 25 MG Tab PO ONE (11:23)
== END 2023-02-23 12:55 ==
LOC: JD.ED 03:15
DX: R45.851 Suicidal ideations (principal)
CPT/HCPCS: 36415; 80053; 80143; 80179; 80306; 80307; 81025; 84443; 85025; 87635; 93005; 99285; A9270; U0002

== ENCOUNTER 2023-05-30 20:44 | Emergency (ER) | payer OTHER, BC ==
[2023-05-30] MEDS ORDERED: Naloxone 0.4 MG/ML SDV IVPUSH PRN (21:48)
[2023-05-30] MEDS ORDERED: Morphine 4 MG/ML Syringe IVPUSH ONE (21:48)
[2023-05-30] MEDS ORDERED: Ondansetron 4 MG/2 ML SDV IVPUSH ONE (21:48)
[2023-05-30] MEDS ORDERED: Iopamidol 612 MG/ML 100 ML Bottle IVPUSH ONE (21:50)
[2023-05-30 22:19] LABS: APPEARANCE,URINE CLEAR (Clear); BILIRUBIN,URINE NEGATIVE (Negative); COLOR,URINE YELLOW (Yellow); GLUCOSE,URINE NEGATIVE (Negative); KETONES,URINE NEGATIVE (Negative); LEUKOCYTE ESTERASE,URINE TRACE (Negative); NITRITE,URINE NEGATIVE (Negative); OCCULT BLOOD,URINE NEGATIVE (Negative); PH,URINE 7.5 (5.0-8.0); PROTEIN,URINE NEGATIVE (Negative); UROBILINOGEN,URINE 0.2 (0.2-1.0)
[2023-05-30 22:29] LABS: BARBITURATE SCREEN,URINE NEGATIVE (CUTOFF=200); BENZODIAZEPINES SCREEN,URINE NEGATIVE (CUTOFF=150); BUPRENORPHINE SCREEN,URINE NEGATIVE (CUTOFF=10); METHADONE SCREEN, URINE NEGATIVE (CUTOFF=200); METHAMPHETAMINES SCREEN, URINE NEGATIVE (CUTOFF=500); OXYCODONE SCREEN,URINE NEGATIVE (CUT0FF=100); THC SCREEN,URINE 20 NG/ML NEGATIVE (CUTOFF=50)
[2023-05-30 22:35] LABS: BASOPHILS PERCENT AUTO 0.4 % (0.0-1.0); EOSINOPHILS ABSOLUTE AUTO 0.1 K/mm3 (0.0-0.4); EOSINOPHILS PERCENT AUTO 1.4 % (0.0-6.0); HEMATOCRIT 36.2 % (37.0-47.0); IMMATURE GRAN ABSOLUTE AUTO 0.04 K/mm3 (0.00-0.05); IMMATURE GRAN PERCENT AUTO 0.6 % (0.0-0.4); LYMPHOCYTES ABSOLUTE AUTO 2.3 K/mm3 (1.0-4.8); LYMPHOCYTES PERCENT AUTO 33.2 % (24.0-44.0); MEAN CORPUSCULAR HEMOGLOBIN 27.9 pg (28.0-32.0); MEAN CORPUSCULAR HGB CONC 33.1 g/dl (32.0-36.0); MEAN CORPUSCULAR VOLUME 84.2 fl (83.0-99.0); MEAN PLATELET VOLUME 10.4 fl (9.4-12.3); MONOCYTES ABSOLUTE AUTO 0.4 K/mm3 (0.0-0.8); MONOCYTES PERCENT AUTO 6.2 % (0.0-8.0); NEUTROPHILS PERCENT AUTO 58.2 % (41.0-71.0); PLATELET COUNT,PLT 249 K/mm3 (150-400); WHITE BLOOD CELL COUNT,WBC 6.95 K/mm3 (3.9-11.3)
[2023-05-30 22:40] LABS: AMPHETAMINES SCREEN, URINE NEGATIVE (CUTOFF=500)
[2023-05-30 22:43] LABS: EPITHELIAL CELLS,URINE 0-5 /hpf (0-5); RBC,URINE NOT SEEN /hpf (0-5); WBC,URINE 0-5 /hpf (0-5)
[2023-05-30 22:44] LABS: BACTERIA,URINE RARE /hpf (FEW); MUCUS,URINE NOT SEEN /hpf (FEW)
[2023-05-30] MEDS ORDERED: Iopamidol 612 MG/ML 30 ML SDV IVPUSH ONE (22:44)
[2023-05-30 22:54] LABS: INR 0.98; PROTHROMBIN TIME 10.5 SECONDS (9.7-12.0)
[2023-05-30 23:13] LABS: A/G RATIO 1.2 (1-2); ALBUMIN 4.1 g/dl (3.4-5.0); ANION GAP 11.5 (5-15); BILIRUBIN TOTAL 0.3 mg/dL (0.2-1.0); BUN/CREATININE RATIO 8.8 (14-18); CREATININE 0.8 mg/dL (0.55-1.02); EST CRCL DRUG DOSING (CG) 105.45 mL/min; POTASSIUM,K 3.5 mEq/L (3.5-5.1); PROTEIN TOTAL,TP 7.4 g/dl (6.4-8.2)
== END 2023-05-31 00:45 | disposition home or self-care (01) ==
LOC: JD.ED 20:44
DX: M54.2 Cervicalgia (principal); Z86.16 Personal history of COVID-19; Z79.899 Other long term (current) drug therapy; V49.40XA Driver injured in collision with unspecified motor vehicles in traffic accident, initial encounter
CPT/HCPCS: 36415; 70450; 71260; 72125; 72128; 72131; 74177; 80053; 80306; 80307; 81001; 81025; 82150; 83605; 85025; 85610; 86850; 86900; 86901; 96374; 96375; 99284; J2270; J2405; Q9967

== ENCOUNTER 2025-03-08 13:30 | Emergency (ER) | payer BC ==
[2025-03-08 14:16] LABS: BASOPHILS ABSOLUTE AUTO 0.0 K/mm3 (0.0-0.2); BASOPHILS PERCENT AUTO 0.5 % (0.0-1.0); EOSINOPHILS ABSOLUTE AUTO 0.1 K/mm3 (0.0-0.4); EOSINOPHILS PERCENT AUTO 2.1 % (0.0-6.0); IMMATURE GRAN ABSOLUTE AUTO 0.02 K/mm3 (0.00-0.05); IMMATURE GRAN PERCENT AUTO 0.5 % (0.0-0.4); LYMPHOCYTES ABSOLUTE AUTO 1.6 K/mm3 (1.0-4.8); LYMPHOCYTES PERCENT AUTO 36.8 % (24.0-44.0); MEAN PLATELET VOLUME 10.7 fl (9.4-12.3); MONOCYTES ABSOLUTE AUTO 0.3 K/mm3 (0.0-0.8); MONOCYTES PERCENT AUTO 6.8 % (0.0-8.0); NEUTROPHILS ABSOLUTE AUTO 2.3 K/mm3 (1.8-7.7); NEUTROPHILS PERCENT AUTO 53.3 % (41.0-71.0); NRBC ABSOLUTE 0.00 (0.00-0.02); NRBC PERCENT 0.0 % (0.0-0.2); PLATELET COUNT,PLT 231 K/mm3 (150-400); RED BLOOD CELL COUNT 4.04 M/mm3 (4.10-5.30); WHITE BLOOD CELL COUNT,WBC 4.29 K/mm3 (3.9-11.3)
[2025-03-08 14:40] LABS: A/G RATIO 1.3 (1-2); ALANINE AMINOTRANSFERASE,ALT 30 U/L (14-59); ASPARTATE AMNIOTRANSFERASE,AST 18 U/L (15-37); BILIRUBIN TOTAL 0.2 mg/dL (0.2-1.0); BLOOD UREA NITROGEN,BUN 9 mg/dL (7-18); CARBON DIOXIDE,CO2 29 mEq/L (21-32); CHLORIDE,CL 105 mEq/L (98-107); CREATININE 0.8 mg/dL (0.55-1.02); ESTIMATED GFR 104 mL/min (>60); GLUCOSE RANDOM 87 mg/dL (70-99); POTASSIUM,K 3.7 mEq/L (3.5-5.1); PROTEIN TOTAL,TP 6.3 g/dl (6.4-8.2); SODIUM,NA 140 mEq/L (136-145)
[2025-03-08 14:42] LABS: TROPONIN I HIGH SENSITIVITY < 4 pg/mL (<=51)
[2025-03-08] MEDS: Sodium Chloride 0.9% 10 ML Syringe FLUSH PRN (15:05)
[2025-03-08] MEDS: Ondansetron 4 MG/2 ML SDV IVPUSH ONE (15:05)
[2025-03-08 15:26] LABS: APPEARANCE,URINE CLEAR (Clear); GLUCOSE,URINE NEGATIVE (Negative); OCCULT BLOOD,URINE NEGATIVE (Negative)
[2025-03-08 15:33] LABS: EPITHELIAL CELLS,URINE 0-5 /hpf (0-5)
== END 2025-03-08 18:04 | disposition home or self-care (01) ==
LOC: JD.ED 13:30
DX: R55 Syncope and collapse (principal); Z79.899 Other long term (current) drug therapy
CPT/HCPCS: 36415; 80053; 81001; 84484; 85025; 86140; 93005; 96361; 96374; 99285; J2405; J7030; 93010; 99283